=== PATIENT | female | born 1985 | race Caucasian/White ===

== ENCOUNTER 2022-02-09 15:31 | Outpatient (CLI) | payer BC, SELFPAY ==
--- NOTE | 2022-02-09 15:30 | CRLHL7_ITS ---
For Patients: As a result of the Century Cures Act, medical imaging exams and procedure reports are released immediately into your electronic medical record. You may view this report before your referring provider. If you have questions, please contact your health care provider. DXA BONE MINERAL DENSITY STUDY Current height (in): 68. Weight (lb): 170. Menopause age: N/A. Ethnicity: White. 1. Have you had a previous hip or vertebral fracture? No. 2. Have you had any fractures during your adult life which did not result from significant trauma (e.g., auto accident)? No. 3. Did either of your parents have a hip fracture? No. 4. Do you smoke? No. 5. Have you ever taken Glucocorticoids? No. 6. Do you have rheumatoid arthritis? No. 7. Do you have secondary osteoporosis? No. 8. Do you drink 3 or more alcoholic drinks per day? No. 9. Are you being treated for osteoporosis? No. 10. Have you ever taken any of the following medications: Actonel, Evista, Fosamax, Miacalcin, Reclast, Boniva, Forteo, HRT (i.e. estrogen/hormone therapy), Protelos, Prolia, Vitamin D, Calcium, other ??? please specify. ANSWER: Yes, vitamin D and calcium. 11. Do you have any of the following medical conditions: Anorexia or bulimia, asthma or emphysema, end stage renal disease, hyperparathyroidism, any seizure disorders, cancer, inflammatory bowel diseases, hysterectomy, other ??? please specify. ANSWER: No. 12. What was your maximum height (inches)? 68. 13. Do you perform weight bearing exercise regularly? Yes. 14. Do you regularly consume dairy products? Yes. 15. Do you drink caffeinated beverages? Yes. 16. At what age did your period start? 13. 17. Are you premenopausal? Yes. 18. How many full term pregnancies have you had? 3. 19. Have you ever missed your period for more than 6 months in a row (not including or menopause)? Yes. TECHNIQUE: Bone mineral density study was performed using the [employer]. FINDINGS: The results of the study expressed as bone mineral density (BMD) are as follows: Lumbar spine L1 to L4: BMD: 1.103 g/cm2. Z-score: 0.6 Neck Left: BMD: 0.872 g/cm2. Z-score: 0.4 Right: BMD: 0.811 g/cm2. Z-score: -0.1 Total Left: BMD: 1.015 g/cm2. Z-score: 0.7 Right: BMD: 0.994 g/cm2. Z-score: 0.5 IMPRESSION: Normal bone density. Mayra Johns M.D. Diagnostic/Breast Radiologist [email or web address]/Dictated by: Mayra Johns MD @ 02/09/2022 4:56:00 PM (Electronically Signed)
== END 2022-02-09 15:32 | disposition home or self-care (01) ==
LOC: RAD 15:33
PROVIDERS: PCP Obstetrics & Gynecology; Visit Provider Nurse Practitioner Family
DX: M84.40XA Pathological fracture, unspecified site, initial encounter for fracture (principal)
CPT/HCPCS: 77080

== ENCOUNTER 2022-06-08 07:30 | Outpatient (RCR) | payer BC, SELFPAY | END 2022-08-15 15:04 | disposition home or self-care (01) | PROVIDERS: PCP Obstetrics & Gynecology; Visit Provider Obstetrics & Gynecology | DX: N81.4 Uterovaginal prolapse, unspecified (principal); Z51.89 Encounter for other specified aftercare | CPT/HCPCS: 97110; 97112; 97140; 97162; 97535 ==

== ENCOUNTER 2023-12-25 14:52 | Outpatient (CLI) | payer BC, SELFPAY ==
--- NOTE | 2023-12-25 15:00 | CRLHL7_ITS ---
For Patients: As a result of the Cures Act, medical imaging exams and procedure reports are released immediately into your electronic medical record. You may view this report before your referring provider. If you have questions, please contact your health care provider. INDICATION: First trimester scan, establish dates. COMPARISON: None. TECHNIQUE: Real-time argueta-scale imaging of the pelvis was performed. FINDINGS: Sonographic imaging demonstrates a single living intrauterine gestation. The embryo demonstrates a regular cardiac rate measuring 161 beats per minute. The embryo`s crown-rump length measurement of 3.8 cm corresponds to a gestational age of 10 weeks 5 days with a sonographic due date of 07/17/2024. There is a normal-appearing yolk sac. There are no gross abnormalities noted within the embryo at this early state of development. The gestational sac has a normal appearance. There is a 2.1 x 0.6 x 1.9 cm perigestational hemorrhage. The amount of fluid within the sac appears appropriate for gestational age. The cervix is closed. The myometrium appears normal. Corpus luteal cyst right ovary. Left ovary not visualized. There are no suspicious fluid collections noted in the cul-de-sac. IMPRESSION: Single living intrauterine with sonographic gestational age 10 weeks 5 days and sonographic due date of 07/17/2024. Subchorionic hemorrhage measuring 2.1 x 0.6 x 1.9 cm. Dictated by Magdaleno Rodriguez MD @ 12/26/2023 12:26:57 PM (Electronically Signed)
== END 2023-12-25 14:53 | disposition home or self-care (01) ==
LOC: US 14:53
PROVIDERS: Visit Provider Advanced Practice Midwife
DX: Z34.91 Encounter for supervision of normal pregnancy, unspecified, first trimester (principal); O20.9 Hemorrhage in early pregnancy, unspecified; Z3A.10 10 weeks gestation of pregnancy
CPT/HCPCS: 76817; 84443; 86703; 86706; 86803; 86850; 86900; 86901; 87086; 87340

== ENCOUNTER 2023-12-25 15:42 | Outpatient (CLI) | payer BC, SELFPAY ==
--- OUTSIDE RECORDS SUMMARY | 2023-12-25 15:46 | XMS_ITS | Clinical Summary ---
Author Organization [employer] [facility] Address [place], [place] [address] Care Team Providers Care Slurry Blender Name Role Phone Rosa Valadez NP Primary Care Provider [phone] Allergies No known active allergies Medications Medication Sig Dispensed Refills Start Date End Date Status Aifvl-2-DUL-EPA-Fish Oil 1,000 mg (120 mg-180 mg) cap Take 1 capsule by mouth. 0 01/11/2018 Active vitamin-folic acid 1 mg ( RX) tablet/capsule Take 1 tablet by mouth once daily. 0 01/11/2018 Active Active Problems Problem Noted Date Diagnosed Date ASCUS of cervix with negative high risk HPV 01/2016 Overview: 11/2015 Colposcopy Advised Low serum high density lipoprotein (HDL) Immunizations Name Administration Dates Next Due DTaP 11/19/1990, 7,03/19/1986,01/21 Hepatitis B (Adult) 05/30/2004,01/25/2004,2003 Human Papilloma Virus Vaccin e, Unspecified 03/08/2011,05/10/2010,03/20/2008,07/12,05/21/2007 Inactivated Polio Vaccine 11/19/1990,,03/19/1986,01/21 MMR 02/05/1998,06/29/1989 Meningococcal Vaccine (Menomune) 12/02/2003 Tdap 11/27/2016,01/23/2008 Family History Medical History Relation Name Comments GI Disease Brother uc and celiac GI Disease Father celiac Other Father idopathic throm bocytopenia/low hdl Thyroid Disease Father hypo GI Disease Maternal Aunt celiac and col on cancer Good Health Mother Heart Disease Paternal Grandfather GI Disease Paternal Grandmother small b owel lymphoma Relation Name Status Comments Brother Father Maternal Aunt Mother Paternal Grandfather Paternal Grandmother Social History Tobacco Use Types Packs/Day Years Used Date Smoking Tobacco: Never Smokeless Tobacco: Never Alcohol Use Standard Drinks/Week Comments Yes 0 (1 standard drink = 0.6 oz pur e alcohol) PHQ-2 Answer Date Recorded PHQ-2 Score 0 08/11/2018 Sex and Gender Information Value Date Recorded Sex Assigned at Not on file Gender Identity Not on file Sexual Orientation Not on file Obstetrics History Last Filed Vital Signs Vital Sign Reading Time Taken Comments Blood Pressure 104/62 01/11/2018 9:41 AM CDT Pulse 64 01/11/2018 9:41 AM CDT Temperature 37.7 ??C (99.8 ??F) 01/30/2015 3:30 PM CD T Respiratory Rate 20 01/30/2015 3:30 PM CDT Oxygen Saturation 99% 01/30/2015 3:30 PM CDT RA Inhaled Oxygen Concentration - - Weight 69.9 kg (154 lb) 01/11/2018 9:41 AM CDT Height 174 cm (5' 8.5) 01/11/2018 9:41 AM CDT Body Mass Index 23.08 01/11/2018 9:41 AM CDT Plan of Treatment Health Maintenance Due Date Last Done Comments HIV for age 15-65 2000 Hepatitis C screening for age 18-79 10/18/2003 BMI (ht and wt on same day) for age 18+ 01/11/2019 01/11/2018, 02/17/2016, 11/17/2015 Depression screening for age 12+ 01/11/2019 01/11/2018, 11/17/2015 COVID-19 vaccine series (2022-24 season) 2023 Influenza for age 9-49 02/10/2024 Pap test for age 21-65 04/29/2024 , 04/29/2021, 09/27/2018, Additional history exists Tetanus booster 11/27/2026 11/27/2016, 01/23/2008 Tdap Completed 11/27/2016, 01/23/2008 Pneumococcal series for age 6-64 Aged Out No longer eligible based on patient's age to complete this topic Procedures Procedure Name Priority Date/Time Associated Diagnosis Comments HPV THIN PREP Routine 04/29/2021 10:10 AM RN MATERNAL CHILD from Last 3 Months or Most Recently Relevant to Health Maintenance Results * HPV HIGH RISK (04/29/2021 10:10 AM RN MATERNAL CHILD) TYPE 16 Negative Negative 05/04/2021 2:12 PM RN MATERNAL CHILD [facility] TYPE 18 Negative Negative 05/04/2021 2:12 PM RN MATERNAL CHILD [facility] OTHER HIGH RISK TYPES Negative Negative 05/04/2021 2:12 PM RN MATERNAL CHILD [facility] Other (Cervical/Vagina l) 04/29/2021 10:10 AM RN MATERNAL CHILD 05/02/2021 9:24 AM RN MATERNAL CHILD Narrative [facility] - 05/04/2021 2:12 PM RN MATERNAL CHILD HPV types 16, 18, 31, 33, 35, 39, 45, 51, 52, 56, 58, 59, 66 and 68 DNA were undetectable or below the pre-set threshold. Methodology: Suzie Lucy 4800 HPV Test Lesli Truong NP MICROBIOLOGY [facility] [address] [place] [address], from Last 3 Months or Most Recently Relevant to Health Maintenance Care Teams Slurry Blender Relationship Specialty Start Date End Date Rosa Valadez NP [address] [facility] [place] [address] PCP - General 01/05/22
--- OUTSIDE RECORDS SUMMARY | 2023-12-25 15:46 | XMS_ITS | Clinical Summary ---
Author Organization [facility] Address [address] [place] [address] Care Team Providers Care Rail Operations Controller Name Role Phone Unassigned, Provider Primary Care Provider Unava ilable Source Comments You are receiving this document as you are listed as the primary care provider,follow-up provider, or the patient has been referred to you for consultation.This is in compliance with the Medicare and[facility] EHR Incentive Program,which states Providers who transition their patient to another setting of careor provider of care or refers their patient to another provider of care shouldprovide summary care record for each transition of care or referral. [facility] Allergies No known active allergies Medications Medication Sig Dispensed Refills Start Date End Date Status omega-3 fatty acids (MAXEPA,FISHOIL) 1000 MG capsule Take 1 g by mouth. 07/11/2012 Active VIT-FE FUMARATE-FA OR Active VITAMIN D, CHOLECALCIFEROL, OR Activ e MAGNESIUM LACTATE OR Acti ve Norethindrone, Contraceptive, (NOR-QD) 0.35 MG tablet Take 1 Tab by mouth daily. 90 Tab 3 03/19/2017 Active Active Problems No known active problems Resolved Problems Problem Noted Date Diagnosed Date Resolved Date Encounter for supervision of normal first 09/18/2016 03/19/2017 Immunizations Name Administration Dates Next Due Tdap 11/27/2016 Family History Medical History Relation Name Comments High Cholesterol Father Hypertension Father Thyroid Disorder Father Heart Disease Paternal Grandfather High Cholesterol Paternal Grandfather Hypertension Paternal Grandfather Cancer Paternal Grandmother Stroke Paternal Grandmother Relation Name Status Comments Father Alive Mother Alive Brother Alive Maternal Grandfather Maternal Grandmother Paternal Grandfather Paternal Grandmother Sister Alive Social History Tobacco Use Types Packs/Day Years Used Date Smoking Tobacco: Never Smokeless Tobacco: Never Alcohol Use Standard Drinks/Week Comments No 0 (1 standard drink = 0.6 oz pur e alcohol) Sex and Gender Information Value Date Recorded Sex Assigned at Not on file Gender Identity Not on file Sexual Orientation Not on file Last Filed Vital Signs Vital Sign Reading Time Taken Comments Blood Pressure 114/74 03/19/2017 11:54 AM CDT Pulse 76 03/19/2017 11:54 AM CDT Temperature - - Respiratory Rate - - Oxygen Saturation - - Inhaled Oxygen Concentration - - Weight 86.5 kg (190 lb 9.6 oz) 02/05/2017 7:16 A M CDT Height 174 cm (5' 8.5) 07/03/2016 8:38 AM DENTAL TECHNICIAN Body Mass Index 28.56 07/03/2016 8:38 AM DENTAL TECHNICIAN Plan of Treatment Health Maintenance Due Date Last Done Comments Cervical Cancer Screening Due 1985 Hep C Screening (Preventive Services) 1985 Adult Preventive Visit 10/18/2003 HepB (1) 2004 COVID-19 Vaccine (1 - 2022-24 season) 2023 Influenza (#1) 2024 DTaP/Tdap/Td (7 - Tdap) 11/27/2026 11/28/19 17, 01/23/2008, 02/02/1998, Additional history exists Zoster/Shingles (1 of 2) 10/18/2035 MCV4 Aged Out 12/02/2003 No longer eligi ble based on patient's age to complete this topic HIV Screening (Preventive Services) Completed 07/03/2016 HPV Vaccine Aged Out No longer eligi ble based on patient's age to complete this topic HepA Aged Out No longer eligi ble based on patient's age to complete this topic Hib Aged Out No longer eligi ble based on patient's age to complete this topic IPV (Polio) Aged Out No longer eligi ble based on patient's age to complete this topic Pneumococcal Aged Out No longer eligi ble based on patient's age to complete this topic Procedures Procedure Name Priority Date/Time Associated Diagnosis Comments HIV-1 P24 AND HIV-1/HIV-2 ANTIBODIES Routine 07/03/2016 9:46 AM DENTAL TECHNICIAN Screening examination for venereal disease from Last 3 Months or Most Recently Relevant to Health Maintenance Results * LAB HIV-1 p24 AND HIV-1/HIV-2 ANTIBODIES (07/03/2016 9:46 AM DENTAL TECHNICIAN) HIV-1 p24 Ag and HIV-1/HIV-2 Ab Nonreactive Nonreactive PN SOFT 07/03/2016 9:46 AM DENTAL TECHNICIAN 07/03/2016 12:56 PM DENTAL TECHNICIAN Narrative PN SOFT - 07/03/2016 2:46 PM DENTAL TECHNICIAN Performed at [facility], [address] [place] [address] CLIA number [id number] Nereyda Martines APRN, CNP LAB_1 PN SOFT [address] [place] [address] from Last 3 Months or Most Recently Relevant to Health Maintenance Care Teams Rail Operations Controller Relationship Specialty Start Date End Date Unassigned, Provider [address] [place] [address] PCP - General 08/18/00
== END 2023-12-25 15:43 | disposition home or self-care (01) ==
PROVIDERS: Visit Provider Advanced Practice Midwife
DX: Z34.91 Encounter for supervision of normal pregnancy, unspecified, first trimester (principal); Z3A.10 10 weeks gestation of pregnancy
CPT/HCPCS: 84443; 86592; 86703; 86704; 86706; 86762; 86787; 86803; 86850; 86900; 86901; 87086; 87340

== ENCOUNTER 2023-12-28 09:48 | Outpatient (CLI) | payer BC, SELFPAY ==
--- OUTSIDE RECORDS SUMMARY | 2023-12-31 15:13 | XMS_ITS | Patient Health Record ---
Author Organization [facility] Address [address] [place] [address] Care Team Providers Care Supply Chain Analyst Name Role Phone None, No PCP Primary Care Provider Rachel Nix [phone] Allergies No Known Allergies Results Component Value Reference Range Notes TSH Reviewed date:07/23/2023 12:40:43 PM Interpretation:Normal Performing Lab:[facility] [address], [place] Juaquin Morgan Notes/Report: TSH 0.81 Reference Range > or = 20 Years 0.40-4.50 Ranges First trimester 0.26-2.66 Second trimester 0.55-2.73 Third trimester 0.43-2.91 HEMOGLOBIN A1c Reviewed date:07/23/2023 12:40:43 PM Interpretation:Normal Performing Lab:[facility] [address], [place] Juaquin Morgan Notes/Report: HEMOGLOBIN A1c 5.2 <5.7 % of total Hgb For the purpose of screening for the presence of diabetes: <5.7% Consistent with the absence of diabetes 5.7-6.4% Consistent with increased risk for diabetes (prediabetes) > or =6.5% Consistent with diabetes This assay result is consistent with a decreased risk of diabetes. Currently, no consensus exists regarding use of hemoglobin A1c for diagnosis of diabetes in children. According to [place] Diabetes Association (ADA) guidelines, hemoglobin A1c <7.0% represents optimal control in non- diabetic patients. Different metrics may apply to specific patient populations. Standards of Medical Care in Diabetes(ADA). HbA1c performed on [employer] platform. CBC (INCLUDES DIFF/PLT) Reviewed date:07/23/2023 12:40:43 PM Interpretation:Normal Performing Lab:[facility], [facility], [facility] InstituteYpdzOD[address] Juaquin Morgan Notes/Report: WHITE BLOOD CELL COUNT 8.5 3.8-10.8 Thousand/ uL RED BLOOD CELL COUNT 4.38 3.80-5.10 Million/uL HEMOGLOBIN 13.3 11.7-15.5 g/dL HEMATOCRIT 39.9 35.0-45.0 % MCV 91.1 80.0-100.0 fL MCH 30.4 27.0-33.0 pg MCHC 33.3 32.0-36.0 g/dL RDW 11.8 11.0-15.0 % PLATELET COUNT 294 140-400 Thousand/uL MPV 10.9 7.5-12.5 fL ABSOLUTE NEUTROPHILS 4599 9432-6517 cells/uL ABSOLUTE LYMPHOCYTES 3162 850-3900 cells/uL ABSOLUTE MONOCYTES 629 200-950 cells/uL ABSOLUTE EOSINOPHILS 94 15-500 cells/uL ABSOLUTE BASOPHILS 17 0-200 cells/uL NEUTROPHILS 54.1 LYMPHOCYTES 37.2 MONOCYTES 7.4 EOSINOPHILS 1.1 BASOPHILS 0.2 COMPREHENSIVE METABOLIC PANE L (CMP) Reviewed date:07/23/2023 12:40:43 PM Interpretation:Normal Performing Lab:[facility] [address] [facility], [facility] InstituteKmwbRT[address] Juaquin Morgan Notes/Report: GLUCOSE 80 65-99 mg/dL Fasting reference interval UREA NITROGEN (BUN) 12 7-25 mg/dL CREATININE 0.86 0.50-0.97 mg/dL EGFR 89 > OR = 60 mL/min/1.73m2 BUN/CREATININE RATIO SEE NOTE: 6-22 (calc) Not Reported: BUN and Creatinine are within reference range. SODIUM 140 135-146 mmol/L POTASSIUM 4.0 3.5-5.3 mmol/L CHLORIDE 104 98-110 mmol/L CARBON DIOXIDE 27 20-32 mmol/L CALCIUM 9.5 8.6-10.2 mg/dL PROTEIN, TOTAL 7.2 6.1-8.1 g/dL ALBUMIN 4.8 3.6-5.1 g/dL GLOBULIN 2.4 1.9-3.7 g/dL (calc) ALBUMIN/GLOBULIN RATIO 2.0 1.0-2.5 (calc) BILIRUBIN, TOTAL 0.2 0.2-1.2 mg/dL ALKALINE PHOSPHATASE 59 31-125 U/L AST 14 10-30 U/L ALT 16 6-29 U/L THYROID PEROXIDASE AND THYRO GLOBULIN ANTIBODIES Reviewed date:07/23/2023 12:40:43 PM Interpretation: Performing Lab:CB, [facility] [address], Alfredo DuvallHtilKR[address] Juaquin Morgan Notes/Report: THYROGLOBULIN ANTIBODIES 1 < or = 1 IU/mL THYROID PEROXIDASE ANTIBODIES 117 <9 IU/mL THINPREP TIS AND HPV mRNA E6 /E7 (30 yrs and over) Reviewed date:07/23/2023 12:40:43 PM Interpretation:Normal Performing Lab: [facility], IsniwswwkrPM[address] Laci Coffey Notes/Report: HPV mRNA E6/E7 Not Detected Not Detected Methodology: Black Oxide Operator-Mediated Amplification This assay detects E6/E7 viral messenger RNA (mRNA) from 14 high-risk HPV types (16,18,31,33,35,39,45,51 ,52,56,58,59,66,68). Cervical sources are required for HPV testing. If a vaginal source from a patient who has had a total hysterectomy with removal of cervix was submitted, please contact the testing laboratory for alternative testing options. For additional information, please refer to http://education.Pososhok.ru/faq/IQO567 v1 (This link if provided for information/ educational purposes only.) Reason For Referral Reason Viverant^2.12 Diagnosis 1 Pelvic floor dysfunc tion (N81.84) Diagnosis 2 Uterine prolaps (N81 .4) Referral Organization [facility] Referring Provider First Name Rachel Referring Provider Last Name Vee Referring Provider Speciality Certified Nurse Food Assembler Referred Provider Specialty Physical The rapist General Notes Rachel Baxter 07/19 04:40:18 PM COMIC BOOK DESIGNER >Patient would like a referral to [facility] pelvic floor PT. Reason: mild cystocele and mild uterine prolapse, Diastasis recti. As many sessions as the PT determines are needed. Thanks!, Lito Sadler 07/20/2023 10:57:31 AM COMIC BOOK DESIGNER > Referral uploaded and faxed to [facility] rehab- P:[phone] F:[phone], Lito Sadler 07/23/2023 12:18:08 PM >PT called and wanted referral sent to [facility]- uploaded and faxed [phone] P:[phone], Lito Sadler 08/01/2023 09:32:57 AM >[facility] called and LVM - PT can call when she is ready Referral Priority Routine Medications Medication SIG (Take, Route, Fr equency, Duration) Notes Start Date End Date Status Probiotic Active [place]-3 Active Estradiol 0.1 MG/GM 0.5 gram Vaginal twi ce a week for 90 days 07/19/2023 Active Multivitamin Active Social History Tobacco Use: Social History Observation Description Date Details (start date - stop date) Never Smoker NA - NA Tobacco Use/Smoking Question Answer Notes Are you a nonsmoker Alcohol Screen (Audit-C) Question Answer Notes Did you have a drink containing alcohol in the p ast year? Yes Points 0 Interpretation Negative Problems Problem Type SNOMED Code ICD Code Onset Dates Problem Status W/U Status Risk Notes Problem Uterovaginal prolapse (22527915) Uterine prolaps (N81.4) Active confirmed Problem Pelvic floor dysfunction (926200991) Pelvic floor dysfunction (N81.84) Active confirmed Problem 94650488 Uterus prolapse (N81.4) Active confirmed Vital Signs Blood pressure diastolic 62 mm Hg 07/19/2023 Height 68 in 07/19/2023 Blood pressure systolic 108 mm Hg 07/19/2023 Weight 161.2 lbs 07/19/2023 BMI 24.51 kg/m2 07/19/2023 Encounters Encounter Location Date Provider Diagnosis [facility] [address] [place] [address] 07/19/2023 Rachel Baxter Encounter for screening for malignant neoplasm of cervix Z12.4 ; Encounter for screening for diabetes mellitus Z13.1 ; Vaginal dryness N89.8 and Uterus prolapse N81.4 [facility] [address] [place] [address] 07/19/2023 Rachel Baxter Encounter for annual routine gynecological examination Z01.419 ; Encounter for screening for human papillomavirus (HPV) Z11.51 ; Screening for metabolic disorder Z13.228 ; Diabetes mellitus screening Z13.1 and Screening for endocrine disorder Z13.29 [facility] [address] [place] [address] 07/19/2023 Rachel Baxter [facility] [address] [place], [place] [id number] 07/19/2023 Rachel Baxter Assessments Encounter Date Diagnosis (ICD Code) Assessment Notes Treat ment Notes Treatment Clinical Notes 07/19/2023 Encounter for screening for malignant neoplasm of cervix (ICD-10 - Z12.4) 07/19/2023 Encounter for screening for diabetes mellitus (ICD-10 - Z13.1) 07/19/2023 Encounter for screening for human papillomavirus (HPV) (ICD-10 - Z11.51) 07/19/2023 Encounter for annual routine gynecological examination (ICD-10 - Z01.419) 07/19/2023 Screening for metabolic disorder (ICD-10 - Z13.228) 07/19/2023 Vaginal dryness (ICD-10 - N89.8) 07/19/2023 Uterus prolapse (ICD-10 - N81.4) 1. Desires pelvic floor PT referral 07/19/2023 Diabetes mellitus screening (ICD-10 - Z13.1) 07/19/2023 Screening for endocrine disorder (ICD-10 - Z13.29) 07/19/2023 Other Reviewed recommendations for Vit D 5000IU, Ca+ and daily multi vitamin. Preventative lab panel collected Pap collected Encouraged to call with any issues or concerns as they come up. All questions answered. RTC in 1 year Plan Of Treatment No Information Insurance Providers Payer Name Payer Address Payer Phone Subscriber Number Group Number Insured Name Patient Relationship to Insured Coverage Start Date Coverage End Date BCBS - (Client Bill) [address] [place] [address] [id number] Brooklynn Gomez Self - patient is the insured Medical (General) History Medical History History ICD Code Abnormal Pap Chicken Pox Thyroid Problem Surgical History Surgery Date(Month/Year) Tonsil 2004
--- OUTSIDE RECORDS SUMMARY | 2023-12-31 15:13 | XMS_ITS | Clinical Summary ---
Author Organization [employer] [facility] Address [place], [place] [address] Care Team Providers Care Maintenance Supervisor Mechanical Name Role Phone Rosa Valadez NP Primary Care Provider [phone] Allergies No known active allergies Medications Medication Sig Dispensed Refills Start Date End Date Status Mgggj-0-KGF-EPA-Fish Oil 1,000 mg (120 mg-180 mg) cap [...] HPV THIN PREP Routine 04/29/2021 10:10 AM YARD COORDINATOR from Last 3 Months or Most Recently Relevant to Health Maintenance Results * HPV HIGH RISK (04/29/2021 10:10 AM YARD COORDINATOR) TYPE 16 Negative Negative 05/04/2021 2:12 PM YARD COORDINATOR [facility] TYPE 18 Negative Negative 05/04/2021 2:12 PM YARD COORDINATOR [facility] OTHER HIGH RISK TYPES Negative Negative 05/04/2021 2:12 PM YARD COORDINATOR [facility] Other (Cervical/Vagina l) 04/29/2021 10:10 AM YARD COORDINATOR 05/02/2021 9:24 AM YARD COORDINATOR Narrative [facility] - 05/04/2021 2:12 PM YARD COORDINATOR HPV types 16, 18, 31, 33, 35, 39, 45, 51, 52, 56, 58, 59, 66 and 68 DNA were undetectable or below the pre-set threshold. Methodology: Suzie Lucy 4800 HPV Test Lesli Truong NP MICROBIOLOGY [facility] [address] [place] [address], from Last 3 Months or Most Recently Relevant to Health Maintenance Care Teams Maintenance Supervisor Mechanical Relationship Specialty Start Date End Date Rosa Valadez NP [address] [facility] [place] [address] PCP - General 01/05/22
--- OUTSIDE RECORDS SUMMARY | 2023-12-31 15:13 | XMS_ITS | Clinical Summary ---
Author Organization [facility] Address [address] [place] [address] Care Team Providers Care Web Database Developer Name Role Phone Unassigned, Provider Primary Care Provider Unava ilable Source Comments You are receiving this document as you are listed as the primary care provider,follow-up provider, or the patient has been referred to you for consultation.This is in compliance with the Medicare and[facility] EHR Incentive Program,which states Providers who transition their patient to another setting of careor provider of care or refers their patient to another provider of care shouldprovide summary care record for each transition of care or referral. [facility] Allergies No known active [...] 174 cm (5' 8.5) 07/03/2016 8:38 AM HOSPITAL INTERN Body Mass Index 28.56 07/03/2016 8:38 AM HOSPITAL INTERN Plan of Treatment Health Maintenance Due Date [...] AND HIV-1/HIV-2 ANTIBODIES Routine 07/03/2016 9:46 AM HOSPITAL INTERN Screening examination for venereal disease from Last 3 Months or Most Recently Relevant to Health Maintenance Results * LAB HIV-1 p24 AND HIV-1/HIV-2 ANTIBODIES (07/03/2016 9:46 AM HOSPITAL INTERN) HIV-1 p24 Ag and HIV-1/HIV-2 Ab Nonreactive Nonreactive PN SOFT 07/03/2016 9:46 AM HOSPITAL INTERN 07/03/2016 12:56 PM HOSPITAL INTERN Narrative PN SOFT - 07/03/2016 2:46 PM HOSPITAL INTERN Performed at [facility], [address] [place] [address] CLIA number [id number] Nereyda Martines APRN, CNP LAB_1 PN SOFT [address] [place] [address] from Last 3 Months or Most Recently Relevant to Health Maintenance Care Teams Web Database Developer Relationship Specialty Start Date End Date Unassigned, Provider [address] [place] [address] PCP - General 08/18/00
== END 2023-12-28 09:49 | disposition home or self-care (01) ==
LOC: NFLDREF 12-31 15:11
PROVIDERS: Visit Provider Advanced Practice Midwife
DX: O09.521 Supervision of elderly multigravida, first trimester (principal); Z3A.10 10 weeks gestation of pregnancy; Z87.81 Personal history of (healed) traumatic fracture
CPT/HCPCS: 82306

== ENCOUNTER 2024-01-08 09:45 | Outpatient (CLI) | payer BC, SELFPAY ==
--- OUTSIDE RECORDS SUMMARY | 2024-01-08 09:48 | XMS_ITS | Clinical Summary ---
Author Organization [facility] Address [address] [place] [address] Care Team Providers Care Log Raft Worker Name Role Phone Unassigned, Provider Primary Care Provider Unava ilable Source Comments You are receiving this document as you are listed as the primary care provider,follow-up provider, or the patient has been referred to you for consultation.This is in compliance with the Medicare and[facility] EHR Incentive Program,which states Providers who transition their patient to another setting of careor provider of care or refers their patient to another provider of care shouldprovide summary care record for each transition of care or referral. [facility] Allergies No known active allergies Medications [...] 174 cm (5' 8.5) 07/03/2016 8:38 AM GUEST SERVICES AMBASSADOR Body Mass Index 28.56 07/03/2016 8:38 AM GUEST SERVICES AMBASSADOR Plan of Treatment Health Maintenance Due Date [...] AND HIV-1/HIV-2 ANTIBODIES Routine 07/03/2016 9:46 AM GUEST SERVICES AMBASSADOR Screening examination for venereal disease from Last 3 Months or Most Recently Relevant to Health Maintenance Results * LAB HIV-1 p24 AND HIV-1/HIV-2 ANTIBODIES (07/03/2016 9:46 AM GUEST SERVICES AMBASSADOR) HIV-1 p24 Ag and HIV-1/HIV-2 Ab Nonreactive Nonreactive PN SOFT 07/03/2016 9:46 AM GUEST SERVICES AMBASSADOR 07/03/2016 12:56 PM GUEST SERVICES AMBASSADOR Narrative PN SOFT - 07/03/2016 2:46 PM GUEST SERVICES AMBASSADOR Performed at [facility], [address] [place] [address] CLIA number [id number] Nereyda Martines APRN, CNP LAB_1 PN SOFT [address] [place] [address] from Last 3 Months or Most Recently Relevant to Health Maintenance Care Teams Log Raft Worker Relationship Specialty Start Date End Date Unassigned, Provider [address] [place] [address] PCP - General 08/18/00
--- OUTSIDE RECORDS SUMMARY | 2024-01-08 09:48 | XMS_ITS | Clinical Summary ---
Author Organization [facility] Address [place], [place] [address] Care Team Providers Care Retail Loss Prevention Investigator Name Role Phone Rosa Valadez NP Primary Care Provider [phone] Allergies No known active allergies Medications Medication Sig Dispensed Refills Start Date End Date Status Emixo-3-PRB-EPA-Fish Oil 1,000 mg (120 mg-180 mg) cap [...] HPV THIN PREP Routine 04/29/2021 10:10 AM COLLEGE HIRE from Last 3 Months or Most Recently Relevant to Health Maintenance Results * HPV HIGH RISK (04/29/2021 10:10 AM COLLEGE HIRE) TYPE 16 Negative Negative 05/04/2021 2:12 PM COLLEGE HIRE [facility] TYPE 18 Negative Negative 05/04/2021 2:[address] [facility] OTHER HIGH RISK TYPES Negative Negative 05/04/2021 2:[address] [facility] Other (Cervical/Vagina l) 04/29/2021 10:10 AM COLLEGE HIRE 05/02/2021 9:24 AM COLLEGE HIRE Narrative [facility] - 05/04/2021 2:12 PM COLLEGE HIRE HPV types 16, 18, 31, 33, 35, 39, 45, 51, 52, 56, 58, 59, 66 and 68 DNA were undetectable or below the pre-set threshold. Methodology: Suzie Lucy 4800 HPV Test Lesli Truong NP MICROBIOLOGY [facility] [employer] [facility] [address] [place] [address], from Last 3 Months or Most Recently Relevant to Health Maintenance Care Teams Retail Loss Prevention Investigator Relationship Specialty Start Date End Date Rosa Valadez NP [address] [facility] [place] [address] PCP - General 01/05/22
--- OUTSIDE RECORDS SUMMARY | 2024-01-08 09:48 | XMS_ITS | Patient Health Record ---
Author Organization [facility] Address [address] [place] [address] Care Team Providers Care Telemarketing Fundraiser Name Role Phone None, No PCP Primary Care Provider Rachel Nix [phone] Allergies No Known Allergies Results Component Value Reference Range Notes TSH Reviewed date:07/23/2023 12:40:43 PM Interpretation:Normal Performing Lab:JA[facility] [address], Video PassportsCbwcEU[address] Juaquin Morgan Notes/Report: TSH 0.81 Reference Range > or = 20 Years 0.40-4.50 Ranges First trimester 0.26-2.66 Second trimester 0.55-2.73 Third trimester 0.43-2.91 HEMOGLOBIN A1c Reviewed date:07/23/2023 12:40:43 PM Interpretation:Normal Performing Lab:JA[facility] [address], Video PassportsIrrsAD[address] Juaquin Morgan Notes/Report: HEMOGLOBIN A1c 5.2 <5.7 [...] diagnosis of diabetes in children. According to [place] Diabetes Association (ADA) guidelines, hemoglobin A1c <7.0% represents optimal control in non- diabetic patients. Different metrics may apply to specific patient populations. Standards of Medical Care in Diabetes(ADA). HbA1c performed on Compendium platform. CBC (INCLUDES DIFF/PLT) Reviewed date:07/23/2023 12:40:43 PM Interpretation:Normal Performing Lab:JAIDA, [facility] MexicoPRNMS INVESTMENTSHackettstown [facility], [facility] HospitalBwnwRO[address] Juaquin Morgan Notes/Report: WHITE BLOOD CELL COUNT 8.5 3.8-10.8 Thousand/ uL RED BLOOD CELL COUNT 4.38 3.80-5.10 Million/uL HEMOGLOBIN 13.3 11.7-15.5 g/dL HEMATOCRIT 39.9 35.0-45.0 % MCV 91.1 80.0-100.0 fL MCH 30.4 27.0-33.0 pg MCHC 33.3 32.0-36.0 g/dL RDW 11.8 11.0-15.0 % PLATELET COUNT 294 140-400 Thousand/uL MPV 10.9 7.5-12.5 fL ABSOLUTE NEUTROPHILS 4599 1794-5671 cells/uL ABSOLUTE LYMPHOCYTES 3162 850-3900 cells/uL ABSOLUTE MONOCYTES 629 200-950 cells/uL ABSOLUTE EOSINOPHILS 94 15-500 cells/uL ABSOLUTE BASOPHILS 17 0-200 cells/uL NEUTROPHILS 54.1 LYMPHOCYTES 37.2 MONOCYTES 7.4 EOSINOPHILS 1.1 BASOPHILS 0.2 COMPREHENSIVE METABOLIC PANE L (CMP) Reviewed date:07/23/2023 12:40:43 PM Interpretation:Normal Performing Lab:JAIDA [facility] Wtyp[address] [facility] MexicoPRNMS INVESTMENTSHackettstown [facility], Me[facility] Memorial HospitalMorjJV[address] Juaquin Morgan Notes/Report: GLUCOSE 80 65-99 mg/dL [...] Reviewed date:07/23/2023 12:40:43 PM Interpretation: Performing Lab:CB, [facility] [address], Alfredo DuvallHvhbZB[address] Juaquin Morgan Notes/Report: THYROGLOBULIN ANTIBODIES 1 < or = 1 IU/mL THYROID PEROXIDASE ANTIBODIES 117 <9 IU/mL THINPREP TIS AND HPV mRNA E6 /E7 (30 yrs and over) Reviewed date:07/23/2023 12:40:43 PM Interpretation:Normal Performing Lab: [facility], KcwfbpwvmfXC[address] Laci Coffey Notes/Report: HPV mRNA E6/E7 Not Detected Not Detected Methodology: Impregnator Helper-Mediated Amplification This assay detects E6/E7 viral messenger RNA (mRNA) from 14 high-risk HPV types (16,18,31,33,35,39,45,51 ,52,56,58,59,66,68). Cervical sources are required for HPV testing. If a vaginal source from a patient who has had a total hysterectomy with removal of cervix was submitted, please contact the testing laboratory for alternative testing options. For additional information, please refer to http://education.Contactually/faq/OHI676 v1 (This link if provided for information/ educational purposes only.) Reason For Referral Reason Viverant^2.12 Diagnosis 1 Pelvic floor dysfunc tion (N81.84) Diagnosis 2 Uterine prolaps (N81 .4) Referral Organization [facility] Referring Provider First Name Rachel Referring Provider Last Name Vee Referring Provider Speciality Certified Nurse Sulky Driver Referred Provider Specialty Physical The rapist General Notes Rachel Baxter 07/19 04:40:18 PM CAR WHACKER >Patient would like a referral to [facility] pelvic floor PT. Reason: mild cystocele and mild uterine prolapse, Diastasis recti. As many sessions as the PT determines are needed. Thanks!, Lito Sadler 07/20/2023 10:57:31 AM CAR WHACKER > Referral uploaded and faxed to [facility] rehab- P:[phone] F:[phone], Lito Sadler 07/23/2023 12:18:08 PM >PT called and wanted referral sent to [facility]- uploaded and faxed [phone] P:[phone], Lito Sadler 08/01/2023 09:32:57 AM >[facility] called and LVM - PT can call when she is ready Referral Priority Routine Medications Medication SIG (Take, Route, Fr equency, Duration) Notes Start Date End Date Status Probiotic Active [place]-3 Active Estradiol 0.1 MG/GM 0.5 gram Vaginal [...] W/U Status Risk Notes Problem Uterovaginal prolapse (73445223) Uterine prolaps (N81.4) Active confirmed Problem Pelvic floor dysfunction (343778994) Pelvic floor dysfunction (N81.84) Active confirmed Problem [id number] Uterus prolapse (N81.4) Active confirmed Vital Signs Blood pressure diastolic 62 mm Hg 07/19/2023 Height 68 in 07/19/2023 Blood pressure systolic 108 mm Hg 07/19/2023 Weight 161.2 lbs 07/19/2023 BMI 24.51 kg/m2 07/19/2023 Encounters Encounter Location Date Provider Diagnosis [facility] [address] [place] [address] 07/19/2023 Rachel Baxter Encounter for annual routine gynecological examination Z01.419 ; Encounter for screening for human papillomavirus (HPV) Z11.51 ; Screening for metabolic disorder Z13.228 ; Diabetes mellitus screening Z13.1 and Screening for endocrine disorder Z13.29 [facility] [address] [address] 07/19/2023 Rachel Baxter Encounter for screening for malignant neoplasm of cervix Z12.4 ; Encounter for screening for diabetes mellitus Z13.1 ; Vaginal dryness N89.8 and Uterus prolapse N81.4 [facility] [address] [place] [address] 07/19/2023 Rachel Baxter [facility] [address] [facility] [address] [place], [place] [id number] 07/19/2023 Rachel Baxter Assessments Encounter Date Diagnosis [...] Date BCBS - (Client Bill) [address] [place] [address] [id number] Brooklynn Gomez Self - patient is the insured Medical (General) History Medical History History ICD Code Abnormal Pap Chicken Pox Thyroid Problem Surgical History Surgery Date(Month/Year) Tonsil 2004
== END 2024-01-08 09:46 | disposition home or self-care (01) ==
LOC: NFLDREF 09:47
PROVIDERS: Visit Provider Advanced Practice Midwife
DX: R33.9 Retention of urine, unspecified (principal)
CPT/HCPCS: 87086

== ENCOUNTER 2024-04-01 17:50 | Outpatient (CLI) | payer BC, SELFPAY ==
--- OUTSIDE RECORDS SUMMARY | 2024-04-01 17:52 | XMS_ITS | Clinical Summary ---
Author Organization [place] Address [address] [place] [address] Care Team Providers Care Chief Librarian Branch Or Department Name Role Phone No Ref-Primary, Physician Primary Care Provider Allergies No known active allergies Medications Medication Sig Dispensed Refills Start Date End Date Status fish oil-omega-3 fatty acids (OMEGA 3) 1000 MG capsule Take 1 capsule by mouth 2 times daily. 90 capsule 3 07/11/2012 Active MV-Min-Fe Fum-FA-DHA ( 1 PO) Active ibuprofen (ADVIL/MOTRIN) 400 MG tabletIndications:SV D (spontaneous vaginal delivery) Take 1-2 tablets (400-800 mg) by mouth every 6 hours as needed for other (cramping) 60 tablet 02/09/2017 Active senna-docusate (SENOKOT-S;PERICOLAC E) 8.6-50 MG per tabletIndications:SV D (spontaneous vaginal delivery) Take 1-2 tablets by mouth 2 times daily 60 tablet 02/09/2017 Active Active Problems Problem Noted Date Diagnosed Date 02/07/2017 Indication for care in labor or delivery 017 Encounter for triage in patient 017 CARDIOVASCULAR SCREENING; LDL GOAL LESS THAN 160 12/17/2014 Papanicolaou smear of cervix with low grade squamous intraepithelial lesion (LGSIL) (aka LSIL) 11/09/2014 Overview: 11/10/14: LSIL. Plan colp.02/10/15: [place] - WNL. Plan cotest pap & HPV in 1 year Tracking started. Contraception management 10/11/2012 Estimated Date of Delivery Comme nts Yes 07/19/2024 Based on last me nstrual period of 10/13/2023 Resolved Problems Problem Noted Date Diagnosed Date Resolved Date Hyperlipidemia LDL goal <160 07/11/2012 12/17/2014 Insomnia 07/11/2012 12/17/2014 Encounters Date Type Department Care Team Description 03/04/2024 9:15 AM CDT Office Visit [facility] Maternal Medicine [place] [address] [facility] [address] [place] [address] Deion Mercedes MD Multigravida of advanced maternal age in second trimester (Primary Dx) 03/04/2024 8:45 AM CDT - 03/04/2024 11:59 PM CDT Hospital Encounter [facility] Maternal Medicine [place] [address] [facility] [address] [place] [phone] Deion Mercedes MD related condition, antepartum Discharge Disposition: Home or Self Care 03/04/2024 Travel 02/25/2024 PRE VISIT [facility] Medicine [place] [address] [address] [facility] [address] [place] [phone] Kellen Medley, MARISELA Ultrasound (L2-AMA) 02/20/2024 Medical Correspondence [address] [place] [address] Scan, Non-Provider 02/20/2024 Transcribe Orders [facility] [place] [address] [facility] [address] [place] [address] Rivka Valdovinos APRN CNM related condition, antepartum (Primary Dx) 01/31/2024 Medical Correspondence [address] [place] [address] Scan, Non-Provider from Last 3 Months Immunizations Name Administration Dates Next Due DTAP (<7y) 11/19/1990,06/29/1986,03/19/1986 ,01/21/1986 HPV 03/08/2011, 0,03/20/2008,07/12/2007, HepB 05/30/2004,01/25/2004,12/02/2003 Influenza (IIV3) PF 01/21/2012 MMR 02/05/1998,06/29/1989 Mantoux Tuberculin Skin Test 03/08/2011,04/26/20 10 Meningococcal (Menomune??) 12/02/2003 Poliovirus, inactivated (IPV) 11/19/1990, 987,03/19/1986,01/21/1986 TD,PF 7+ (Tenivac) 02/02/1998 TDAP (Adacel,Boostrix) 01/23/2008 Family History Medical History Relation Comments Lipids Brother 1-celiac ulcerat re colitis Lipids Father celiac dis Thyroid Disease Father underactive Cancer - colorectal Maternal Aunt Family History Negative Mother Diabetes Paternal Grandmother Family History Negative Sister 2 1 Breast Cancer No family hx of Family History Negative No family hx of Relation Status Comments Brother Alive x1 Father Alive Maternal Aunt Maternal Grandfather Maternal Grandmother Mother Alive Paternal Grandfather Paternal Grandmother Sister 1 Alive x1 Sister 2 Social History Tobacco Use Types Packs/Day Years Used Date Smoking Tobacco: Never Smokeless Tobacco: Never Alcohol Use Standard Drinks/Week Comments Yes 0 (1 standard drink = 0.6 oz pur e alcohol) weekends-social Adolescent Education Answer Date Record ed Getting School Help Needed Not on file 12/16 Estimated Date of Delivery Comme nts Yes 07/19/2024 Based on last me nstrual period of 10/13/2023 Sex and Gender Information Value Date Recorded Sex Assigned at Not on file Gender Identity Not on file Sexual Orientation Not on file Last Filed Vital Signs Vital Sign Reading Time Taken Comments Blood Pressure 136/86 02/09/2017 9:28 AM CDT Pulse 57 02/08/2017 12:09 PM CDT Temperature 36.8 ??C (98.2 ??F) 02/09/2017 9:28 AM CD T Respiratory Rate 18 02/09/2017 9:28 AM CDT Oxygen Saturation 98% 09/12/2015 12:31 PM CDT Inhaled Oxygen Concentration - - Weight 86.2 kg (190 lb) 02/07/2017 11:10 AM CDT Height 172.7 cm (5' 8) 02/07/2017 11:10 AM CDT Body Mass Index 28.89 02/07/2017 11:10 AM CDT Plan of Treatment Health Maintenance Due Date Last Done Comments ADVANCE CARE PLANNING 1985 ANNUAL REVIEW OF HM ORDERS 1985 HEPATITIS C SCREENING 10/18/2003 GLUCOSE 11/10/2017 11/10/2014, 09/09, 07/25/2012, Additional history exists YEARLY PREVENTIVE VISIT 10/31/2020 11/01/19 20, 11/10/2014, 09/25/2013, Additional history exists PAP 04/29/2022 04/29/2021, 10/10, 11/01/2019, Additional history exists PHQ-2 (once per calendar year) 2023 MATERNAL SCREENING DISCUSSION 12/22/2023 COVID-19 Vaccine ( season) 2024 INFLUENZA VACCINE (#1) 2024 01/21/2012 OBGCT (OB) 03/29/2024 RSV VACCINE (1 - Risk 1-dose series) 05/24/2024 GROUP B STREP SCREENING 06/21/2024 01/08/2017 DTAP/TDAP/TD IMMUNIZATION (8 - Td or Tdap) 03/21/2029 03/21/2019, 11/27/2016, 01/23/2008, Additional history exists MENINGITIS IMMUNIZATION Aged Out 12/02/2003 No l onger eligible based on patient's age to complete this topic HEPATITIS B IMMUNIZATION Completed 004, 05/30/2004, 01/25/2004, Additional history exists HPV IMMUNIZATION Completed 03/08/2011, , 03/20/2008, Additional history exists HIV SCREENING Completed 07/03/2016 Pneumococcal Vaccine: Pediatrics (0 to 5 Years) and At-Risk Patients (6 to 64 Years) Aged Out No longer eligible based on patient's age to complete this topic RSV MONOCLONAL ANTIBODY Aged Out No l onger eligible based on patient's age to complete this topic Procedures Procedure Name Priority Date/Time Associated Diagnosis Comments [facility] COMPREHENSIVE SINGLE Routine 03/04/2024 9:33 AM CDT related condition, antepartum GROUP B STREP PCR Routine 01/08/2017 HIV ANTIGEN ANTIBODY COMBO Routine 07/03/2016 COMPREHENSIVE METABOLIC PANEL Routine 11/10/2014 8:46 AM CDT Screening for diabetes mellitus PAP IMAGED THIN LAYER SCREEN Routine 11/10/2014 12:00 AM CDT Screening for malignant neoplasm of the cervix from Last 3 Months or Most Recently Relevant to Health Maintenance Results * [facility] US Comprehensive Single (03/04/2024 9:33 AM CDT) Anatomical Region Laterality Modality Ultrasound 03/04/2024 8:54 AM CDT Impressions 03/04/2024 1:29 PM CDT IMPRESSION ----- 1. Elizabeth at 20w 3d gestational age by LMP and 10 week US. 2. No anomalies commonly detected by ultrasound were identified in the detailed anatomic survey within the limits of ultrasound. 3. Growth parameters and estimated weight were consistent with gestational age predicted by assigned RAFFI. 4. The amniotic fluid volume appeared normal. 5. On transabdominal imaging the cervix appeared long and closed. Narrative 03/04/2024 1:29 PM CDT ?Comprehensive ----- Pat. Name: JOSE GOMEZ ? Study Date: ??03/04/2024 8:54am Pat. NO: ??[id number] ?Referring ??MD: RIVKA VALDOVINOS Site: ? Field Operations Supervisor: Hakeem Wies [facility] : ??1985 ?Age: ?? 38 ----- INDICATION ----- Advanced Maternal Age. METHOD ----- Transabdominal ultrasound examination. View: Sufficient ----- [place] . Number of fetuses: 1 DATING ----- ? Date ?Details ?Gest. age ?RAFFI LMP ?10/13/2023 ? 20 w + 3 d ? 07/19/2024 Previous U/S ?12/27/2023 ?GA, GA 10 w + 5 d ?20 w + 3 d ? 07/19/2024 U/S ? 03/04/2024 ? based upon AC, BPD, Femur, HC ?21 w + 2 d ? 07/13/2024 Assigned dating ?based on the LMP, selected on 03/04/2024 ? 20 w + 3 d ? 07/19/2024 GENERAL EVALUATION ----- Cardiac activity present. FHR 151 bpm. movements: present. Presentation: cephalic Placenta: Posterior, No Previa, > 2 cm from internal os Umbilical cord: 3 vessel cord Amniotic fluid: Amount of AF: normal. MVP 4.9 cm BIOMETRY ----- BPD ? 48.9 ?mm ? 20w 6d ?Gustavo ACE ? 70.4 ?mm ? 21w 6d ?Nicolaides HC ? 191.7 ?mm ? 21w 3d ? Hadlock Cerebellum tr ?22.6 ?mm ? 21w 2d ? Nicolaides Nuchal fold ?4.8 ? mm AC ? 167.4 ?mm ? 21w 5d ?84% ?Hadlock Femur ?34.5 ?mm ? 20w 6d ? Hadlock Humerus ? 33.7 ? mm ?21w 3d ?Junie Weight Calculation: EFW ?416 ? g ? 88% ?Hadlock EFW (lb,oz) ?0 lb 15 ? oz EFW by ? Hadlock ([id number]) Head / Face / Neck Biometry: Tube Cutter Operator ?5.5 ? mm CM ? 2.8 ? mm Nasal bone ? 7.2 ?mm ANATOMY ----- The following structures appear normal: Head / Neck ? Cranium. Head size. Head shape. Lateral ventricles. Choroid plexus. Midline falx. Cavum septi pellucidi. Cerebellum. Cisterna magna. ? Parenchyma. Thalami. Vermis. ? Neck. Nuchal fold. Face ? Lips. Profile. Nose. Maxilla. Mandible. Orbits. Lens. Heart / Thorax ?4-chamber view. RVOT view. LVOT view. 3-vessel view. 2-qmsain-yqswjdw view. Situs. Aortic arch view. Bicaval view. Ductal arch view. Superior ? vena cava. Inferior vena cava. Cardiac position. Cardiac size. Cardiac rhythm. ? Right lung. Left lung. Diaphragm. Abdomen ? Abdom. wall. Cord insertion. Stomach. Kidneys. Bladder. Liver. Bowel. Genitals. Spine ?Cervical spine. Thoracic spine. Lumbar spine. Sacral spine. Extremities / Skeleton ?Arms. Right arm. Right hand. Left arm. Left hand. Legs. Right leg. Right foot. Left leg. Left foot. sex: female. MATERNAL STRUCTURES ----- Cervix ?Visualized ? Appearance: Appears Closed ? Approach - Transabdominal: Cervical length 42.6 mm Right Ovary ?Visualized Left Ovary ?Visualized RECOMMENDATION ----- Thank-you for referring your patient for a comprehensive ultrasound. I discussed the findings on today's ultrasound with the patient. I reviewed the limitations of ultrasound both in detecting aneuploidy and structural abnormalities. Ultrasound can routinely detect 80-90% of structural abnormalities. She had low risk cell free DNA for genetic screening this . Further ultrasound studies as clinically indicated. Return to primary provider for continued care. If you have questions regarding today's evaluation or if we can be of further service, please contact the [facility]. anomalies may be present but not detected Procedure Note Deion Mercedes MD - 03/04/2024 Comprehensive ----- Pat. Name: JOSE GOMEZ Study Date: 03/04/2024 8:54am Pat. NO: [id number] Referring MD: RIVKA VALDOVINOS Site: Field Operations Supervisor: Hakeem Wise RDMS : 1985 Age: 38 ----- INDICATION ----- Advanced Maternal Age. METHOD ----- Transabdominal ultrasound examination. View: Sufficient ----- [place] . Number of fetuses: 1 DATING ----- DateDetailsGest. age RAFFI LMP w + 3 d 07/19/2024 Previous U/S 12/27/2023 GA, GA10 w + 5 d20 w + 3 d 07/19/2024 U/S 03/04/2024ased upon AC, BPD, Femur, HC21 w + 2 d 07/13/2024 Assigned dating based on the LMP, selected on w + 3 d 07/19/2024 GENERAL EVALUATION ----- Cardiac activity present. FHR 151 bpm. movements: present.Presentation: cephalic Placenta: Posterior, No Previa, > 2 cm from internal os Umbilical cord: 3 vessel cord Amniotic fluid: Amount of AF: normal. MVP 4.9 cm BIOMETRY ----- BPD 48.9mm 20w 6dHadlock OFD 70.4mm 21w 6dNicolaides HC 191.7mm 21w 3dHadlock Cerebellum tr 22.6mm 21w 2dNicolaides Nuchal fold 4.8mm AC 167.4mm 21w 5d 84%Hadlock Femur 34.5mm 20w 6dHadlock Humerus 33.7mm 21w 3dJeanty Weight Calculation: EFW 416g 88%Hadlock EFW (lb,oz) 0 lb 15oz EFW by Hadlock([id number]) Head / Face / Neck Biometry: Tube Cutter Operator 5.5mm CM 2.8mm Nasal bone 7.2mm ANATOMY ----- The following structures appear normal: Head / Neck Cranium. Head size. Head shape.Lateral ventricles. Choroid plexus. Midline falx. Cavum septi pellucidi.Cerebellum. Cisterna magna. Parenchyma. Thalami. Vermis. Neck. Nuchal fold. Face Lips. Profile. Nose. Maxilla.Mandible. Orbits. Lens. Heart / Thorax 4-chamber view. RVOT view. LVOT view.3-vessel view. 1-umaypo-hopaonq view. Situs. Aortic arch view. Bicavalview. Ductal arch view. Superior vena cava. Inferior vena cava.Cardiac position. Cardiac size. Cardiac rhythm. Right lung. Left lung.Diaphragm. Abdomen Abdom. wall. Cord insertion. Stomach.Kidneys. Bladder. Liver. Bowel. Genitals. Spine Cervical spine. Thoracic spine.Lumbar spine. Sacral spine. Extremities / Skeleton Arms. Right arm. Right hand. Left arm.Left hand. Legs. Right leg. Right foot. Left leg. Left foot. sex: female. MATERNAL STRUCTURES ----- Cervix Visualized Appearance: Appears Closed Approach - Transabdominal:Cervical length 42.6 mm Right Ovary Visualized Left Ovary Visualized RECOMMENDATION ----- Thank-you for referring your patient for a comprehensive ultrasound. I discussed the findings on today's ultrasound with the patient. Ireviewed the limitations of ultrasound both in detecting aneuploidy andstructural abnormalities. Ultrasound can routinely detect 80-90% of structural abnormalities. She had low riskcell free DNA for genetic screening this . Further ultrasound studies as clinically indicated. Return to primary provider for continued care. If you have questions regarding today's evaluation or if we can be offurther service, please contact the [facility]. anomalies may be present but not detected IMPRESSION ----- 1. [place] at 20w 3d gestational age by LMP and 10 week US. 2. No anomalies commonly detected by ultrasound were identified inthe detailed anatomic survey within the limits of prenatalultrasound. 3. Growth parameters and estimated weight were consistent withgestational age predicted by assigned RAFFI. 4. The amniotic fluid volume appeared normal. 5. On transabdominal imaging the cervix appeared long and closed. Rivka Valdovinos APRN CNM IMG MFM US ORDE MOUNA * Group B strep PCR (01/08/2017) Pathologist [facility] Group B Strep PCR negative Patient Reported LAB - MICRO GENERAL ORDERABLES * HIV Antigen Antibody Combo (07/03/2016) [facility] HIV Antigen Antibody Combo negative Blood specimen (specimen) Patient Reported LAB - BLOOD ORDERABL ES * Comprehensive metabolic panel (11/10/2014 8:46 AM CDT) [facility] Sodium 138 133 - 144 mmol/L [facility] Potassium 3.6 3.4 - 5.3 mmol/L [facility] Chloride 104 94 - 109 mmol/L [facility] Carbon Dioxide 27 20 - 32 mmol/L [facility] Anion Gap 7 3 - 14 mmol/L [facility] Glucose 78 70 - 99 mg/dL [facility] Urea Nitrogen 15 7 - 30 mg/dL [facility] Creatinine 0.85 0.52 - 1.04 mg/dL [facility] GFR Estimate 79 >60 mL/min/1. 7m2 [facility] Comment:Non GFR Calc GFR Estimate If Black >90 GFR Calc >60 mL/min/1. 7m2 [facility] Calcium 8.6 8.5 - 10.1 mg/dL [facility] Bilirubin Total 0.5 0.2 - 1.3 mg/dL [facility] Albumin 3.5 3.4 - 5.0 g/dL [facility] Protein Total 6.9 6.8 - 8.8 g/dL [facility] Alkaline Phosphatase 49 40 - 150 U/L [facility] ALT 24 0 - 50 U/L [facility] AST 10 0 - 45 U/L [facility] Blood specimen (specimen) 11/10/2014 8:46 AM CDT 11/10/2014 8:47 AM CDT Jose Trinidad PA-C LAB - BL OOD ORDERABLES [facility] [address] [place] [address] * (ABNORMAL) PAP imaged thin layer screen (11/10/2014 12:00 AM CDT) PAP LSIL(A) COPATH Copath Report Patient Name: JOSE CHENEY MR#: [id number] Specimen #: [id number] Collected: 11/10/2014 Received: 11/10/2014 Reported: 11/13/2014 06:55 Ordering Phy(s): JOSE TRINIDAD SPECIMEN/STAIN PROCESS: Pap imaged thin layer prep screening (Surepath, FocalPoint with guided screening) ? Pap-Cyto x 1 SOURCE: Cervical, endocervical Pap imaged thin layer prep screening (Surepath, FocalPoint with guided screening) SPECIMEN ADEQUACY: Satisfactory for evaluation. -Transformation zone component present. CYTOLOGIC INTERPRETATION: Epithelial Cell Abnormality: ??Squamous Cell: ??Low-grade squamous intraepithelial lesion (LSIL) encompassing: ??HPV/ mild dysplasia/ ROSEANNE 1. Electronically signed out by: Ranjeet Andersen M.D. Processed and screened at [facility], [facility] CLINICAL HISTORY: LMP: 10/27/2014 Previous normal pap Date of Last Pap: 09/25/2013, Papanicolaou Test Limitations: ??Cervical cytology is a screening test with limited sensitivity; regular screening is critical for cancer prevention; Pap tests are primarily effective for the diagnosis/preventi on of squamous cell carcinoma, not adenocarcinomas or other cancers. TESTING LAB LOCATION: [address] ??[id number] COLLECTION SITE: Client: ??[facility] Location: LVFP (R) COPATH Cytologic material (specimen) 11/10/2014 11/10/2014 2:07 PM CDT Jose Trinidad PA-C LAB - OP TIME CLINICAL SPECIMEN COPATH from Last 3 Months or Most Recently Relevant to Health Maintenance Care Teams Chief Librarian Branch Or Department Relationship Specialty Start Date End Date No Ref-Primary, Physician PCP - General 02/20/24
--- OUTSIDE RECORDS SUMMARY | 2024-04-01 17:53 | XMS_ITS | Encounter Summary ---
Author Organization [place] Address [address] [place] [address] Care Team Providers Care Product Consultant Name Role Phone Mandy Trinidad PA-C Primary Care Pr ovider Timothy Webb MD Primary Care Provider [phone] No Ref-Primary, Physician Primary Care Provider Reason for Visit * Reason Onset Date Comments MyChart Communication 02/11/2015 Encounter Details Date Type Department Care Team (Late st Contact Info) Description 02/11/2015 MyC Medical Advice [address] [address] Amy Rowell, DO [address] [address] MyChart Communication Social History Tobacco Use Types Packs/Day Years Used Date Smoking Tobacco: Never Smokeless Tobacco: Never Alcohol Use Standard Drinks/Week Comments Yes 0 (1 standard drink = 0.6 oz pur e alcohol) weekends-social Sex and Gender Information Value Date Recorded Sex Assigned at Not on file Gender Identity Not on file Sexual Orientation Not on file documented as of this encounter Miscellaneous Notes * Telephone Encounter - Melany Cohen RN - 02/12/2015 4:02 PM CDT Please respond to MyChart. Melany Noel, RN documented in this encounter Plan of Treatment Not on file documented as of this encounter Visit Diagnoses Diagnosis Cervicitis- Primary Cervicitis and endocervicitis documented in this encounter Care Teams Product Consultant Relationship Specialty Start Date End Date Mandy Trinidad PA-C [address] [place] [address] PCP - General Physician Director Of Billing 09/25/13 01/15/17 [place] [address] [place] [address] PCP - General 01/16/17 01/16/17 No Ref-Primary, Physician PCP - General 02/20/24 documented as of this encounter
--- OUTSIDE RECORDS SUMMARY | 2024-04-01 17:53 | XMS_ITS | Encounter Summary ---
Author Organization [place] Address [facility] [place] [address] Care Team Providers Care Insulation Engineman Name Role Phone No Ref-Primary, Physician Primary Care Provider Reason for Referral * Diagnostic Imaging Ultrasound (Routine) - Pending Review Specialty Diagnoses / Procedures Referred By Contac t Referred To Contact Radiology. Diagnoses related condition, antepartum Procedures [facility] US Comprehensive Single Rivka Valdovinos APRN [facility] [address] [place] [address] Referral ID Status Reason Start Date Expiration Date V isits Requested Visits Authorized [id number] Pending Review 02/20/2024 02/19/2025 1 1 * Consultation (Routine: Next available opening) - Pending Review Specialty Diagnoses / Procedures Referred By Contac t Referred To Contact Diagnoses related condition, antepartum Rivka Valdovinos APRN [facility] [address] [place] [address] [facility] [address] [place] [address] Referral ID Status Reason Start Date Expiration Date V isits Requested Visits Authorized [id number] Pending Review 02/20/2024 02/19/2025 1 1 Question Answer Preferred Location: [facility] [place] RAFFI 07/19/2024 Ultrasound Comprehensive US (>than 18 weeks GA) US PROC NONE MFM Issue Advanced Maternal Age *MUST request Genetic Counseling MFM MD Consultation (unrelated to Ultrasound findings): No Inflammatory Bowel Disease Clinic: Joint MFM and GI Consultation: No Chronic Kidney Disease: Joint MFM and Nephrology Consultation No Cardio-Obstetrics: Joint MFM and Cardiology Consultation No Genetic Counseling Consultation: No fax [facility] Rivka Valdovinos [phone] Comments AMA Encounter Details Date Type Department Care Team (Latest Contact Info) Description 02/20/2024 Transcribe Orders [facility] Maternal Medicine [facility] [place] [address] [facility] [address] [place] [phone] Rivka Valdovinos APRN CNM [address] [address] related condition, antepartum (Primary Dx) Social History Tobacco Use Types Packs/Day Years Used Date Smoking Tobacco: Never Smokeless Tobacco: Never Alcohol Use Standard Drinks/Week Comments Yes 0 (1 standard drink = 0.6 oz pur e alcohol) weekends-social Adolescent Education Answer Date Record ed Getting School Help Needed Not on file 12/16 Sex and Gender Information Value Date Recorded Sex Assigned at Not on file Gender Identity Not on file Sexual Orientation Not on file documented as of this encounter Plan of Treatment Scheduled Referrals Name Type Priority Associated Diagnoses Orde r Schedule [facility] Med Ctr Referral - Referral Routine: Next available opening related condition, antepartum Expected: 03/07/2024 (Approximate), Expires: 08/18/2024 documented as of this encounter Results * [facility] US Comprehensive Single (03/04/2024 9:33 AM CDT) [...] 1:29 PM CDT ?Comprehensive ----- Pat. Name: BROOKLYNN GOMEZ ? Study Date: ??03/04/2024 8:54am Pat. NO: ??[id number] ?Referring ??MD: RIVKA VALDOVINOS Site: ? [place] Block Setter: Hakeem Wise RDMS : ??1985 ?Age: ?? 38 ----- INDICATION [...] 15 ? oz EFW by ? Hadlock ([id number]) Head / Face / Neck Biometry: Assistant Producer ?5.5 ? mm CM ? 2.8 ? [...] view. RVOT view. LVOT view. 3-vessel view. 1-kpsvmm-cxtgukq view. Situs. Aortic arch view. Bicaval view. [...] MD - 03/04/2024 Comprehensive ----- Pat. Name: BROOKLYNN GOMEZ Study Date: 03/04/2024 8:54am Pat. NO: [id number] Referring MD: RIVKA VALDOVINOS Site: [place] Block Setter: Hakeem Wise RDMS : 1985 Age: 38 [...] EFW (lb,oz) 0 lb 15oz EFW by Hadlock([id number]) Head / Face / Neck Biometry: Assistant Producer 5.5mm CM 2.8mm Nasal bone 7.2mm ANATOMY ----- The following structures appear normal: Head / Neck Cranium. Head size. Head shape.Lateral ventricles. Choroid plexus. Midline falx. Cavum septi pellucidi.Cerebellum. Cisterna magna. Parenchyma. Thalami. Vermis. Neck. Nuchal fold. Face Lips. Profile. Nose. Maxilla.Mandible. Orbits. Lens. Heart / Thorax 4-chamber view. RVOT view. LVOT view.3-vessel view. 6-uephrs-omcdzpm view. Situs. Aortic arch view. Bicavalview. Ductal [...] cervix appeared long and closed. Rivka Valdovinos APRN, CNM [facility] US [facility]WN [facility]IRE documented in this encounter Visit Diagnoses Diagnosis related condition, antepartum- Primary related condition, antepartum documented in this encounter Care Teams Insulation Engineman Relationship Specialty Start Date End Date No Ref-Primary, Physician PCP - General 02/20/24 documented as of this encounter
--- OUTSIDE RECORDS SUMMARY | 2024-04-01 17:53 | XMS_ITS | Clinical Summary ---
Author Organization [facility] Address [address] [place] [address] Care Team Providers Care Scoop Machine Operator Name Role Phone Unassigned, Provider Primary Care Provider Unava ilable Source Comments You are receiving this document as you are listed as the primary care provider,follow-up provider, or the patient has been referred to you for consultation.This is in compliance with the Medicare andThe [facility] EHR Incentive Program,which states Providers who transition their patient to another setting of careor provider of care or refers their patient to another provider of care shouldprovide summary care record for each transition of care or referral. [facility] Allergies No known active allergies Medications Medication [...] 174 cm (5' 8.5) 07/03/2016 8:38 AM CHIEF TECHNOLOGIST Body Mass Index 28.56 07/03/2016 8:38 AM CHIEF TECHNOLOGIST Plan of Treatment Health Maintenance Due Date Last Done Comments Cervical Cancer Screening Due 1985 Hep C Screening (Preventive Services) 1985 Adult Preventive Visit 10/18/2003 HepB (1) 2004 COVID-19 Vaccine ( - 2023- season) 2024 Influenza (#1) 2024 DTaP/Tdap/Td (7 - Tdap) [...] patient's age to complete this topic RSV Aged Out No longer eligi ble based on patient's age to complete this topic Pneumococcal Aged Out No longer eligi ble based on patient's age to complete this topic Procedures Procedure Name Priority Date/Time Associated Diagnosis Comments HIV-1 P24 AND HIV-1/HIV-2 ANTIBODIES Routine 07/03/2016 9:46 AM CHIEF TECHNOLOGIST Screening examination for venereal disease from Last 3 Months or Most Recently Relevant to Health Maintenance Results * LAB HIV-1 p24 AND HIV-1/HIV-2 ANTIBODIES (07/03/2016 9:46 AM CHIEF TECHNOLOGIST) HIV-1 p24 Ag and HIV-1/HIV-2 Ab Nonreactive Nonreactive PN SOFT 07/03/2016 9:46 AM CHIEF TECHNOLOGIST 07/03/2016 12:56 PM CHIEF TECHNOLOGIST Narrative PN SOFT - 07/03/2016 2:46 PM CHIEF TECHNOLOGIST Performed at [address] [address] CLIA number [id number] Nereyda Martines APRN, CNP LAB_1 PN SOFT [address] [place] [address] from Last 3 Months or Most Recently Relevant to Health Maintenance Care Teams Scoop Machine Operator Relationship Specialty Start Date End Date Unassigned, Provider [address] [place] [address] PCP - General 08/18/00
--- OUTSIDE RECORDS SUMMARY | 2024-04-01 17:53 | XMS_ITS | Encounter Summary ---
Author Organization [facility] Address [address] [place] [address] Care Team Providers Care Prepared Foods Team Leader Name Role Phone No Ref-Primary, Physician Primary Care Provider Encounter Details Date Type Department Care Team (Latest Contact Info) Description 03/04/2024 Travel Social History Tobacco Use Types Packs/Day Years [...] as of this encounter Plan of Treatment Not on file documented as of this encounter Visit Diagnoses Not on filedocumented in this encounter Care Teams Prepared Foods Team Leader Relationship Specialty Start Date End Date No Ref-Primary, Physician PCP - General 02/20/24 documented as of this encounter
--- OUTSIDE RECORDS SUMMARY | 2024-04-01 17:53 | XMS_ITS | Encounter Summary ---
Author Organization [facility] Address [address] [place] [address] Care Team Providers Care Motor Vehicle License Clerk Name Role Phone Shanon Rushing MD Primary Care Provider [phone] Mandy Trinidad PA-C Primary Care Pr ovider Timothy Webb MD Primary Care Provider [phone] No Ref-Primary, Physician Primary Care Provider Encounter Details Date Type Department Care Team (Late st Contact Info) Description 07/29/2012 MyC Medical Advice [facility] [id number] [place] [address] Shanon Rushing MD [address] [place] [address] Social History Tobacco Use Types Packs/Day Years [...] on filedocumented in this encounter Care Teams Motor Vehicle License Clerk Relationship Specialty Start Date End Date Shanon Rushing MD PCP - General Family Practice 07/11/12 09/24/13 Mandy Trinidad PA-C [address] [place] [address] PCP - General Physician Bundle Clerk 09/25/13 01/15/17 [place] [address] [place] [address] PCP - General 01/16/17 01/16/17 No Ref-Primary, Physician PCP - General 02/20/24 documented as of this encounter
--- OUTSIDE RECORDS SUMMARY | 2024-04-01 17:53 | XMS_ITS | Referral Summary ---
Author Organization [facility] Address [address] [place] [address] Care Team Providers Care Loss Prevention Leader Name Role Phone No Ref-Primary, Physician Primary Care Provider Encounters Date Type Department Care Team Description 03/04/2024 Travel 03/04/2024 9:15 AM CDT Office Visit [facility] [address] [facility] [address] [place] [phone] Deion Mercedes MD Multigravida of advanced maternal age in second trimester (Primary Dx) 03/04/2024 8:45 AM CDT - 03/04/2024 11:59 PM CDT Hospital Encounter [facility] Medicine [facility] [address] [facility] [address] [place] [phone] Deion Mercedes MD related condition, antepartum Discharge Disposition: Home or Self Care 02/25/2024 PRE VISIT [facility] [address] [facility] [address] [place] [phone] Kellen Medley RN Ultrasound (L2-AMA) 02/20/2024 Medical Correspondence [facility] Information Management [address] [place] [address] [address] [place] [address] Scan, Non-Provider 02/20/2024 Transcribe Orders [facility] [address] [facility] [address] [place] [address] Rivka Valdovinos APRN CNM related condition, antepartum (Primary Dx) 01/31/2024 Medical Correspondence [facility] Information Management [address] [facility] [address] [place] [address] Scan, Non-Provider from Last 3 Months Allergies No known active allergies Medications Medication [...] LSIL) 11/09/2014 Overview: 11/10/14: LSIL. Plan colp.02/10/15: [place] - WNL. Plan cotest pap & HPV in 1 year Tracking started. Contraception management 10/11/2012 Estimated Date of Delivery Comme nts Yes 07/19/2024 Based on last me nstrual period of 10/13/2023 Resolved Problems Problem Noted Date Diagnosed Date Resolved Date Hyperlipidemia LDL goal <160 07/11/2012 12/17/2014 Insomnia 07/11/2012 12/17/2014 Immunizations Name Administration Dates Next Due DTAP (<7y) 11/19/1990,06/29/1986,03/19/1986 ,01/21/1986 HPV 03/08/2011, 0,03/20/2008,07/12/2007, HepB 05/30/2004,01/25/2004,12/02/2003 Influenza (IIV3) PF 01/21/2012 MMR 02/05/1998,06/29/1989 Mantoux Tuberculin Skin Test 03/08/2011,04/26/20 10 Meningococcal (Menomune??) 12/02/2003 Poliovirus, inactivated (IPV) 11/19/1990, 987,03/19/1986,01/21/1986 TD,PF 7+ (Tenivac) 02/02/1998 TDAP (Adacel,Boostrix) 01/23/2008 Social History Tobacco Use Types Packs/Day Years [...] 02/07/2017 11:10 AM CDT Plan of Treatment Not on file Procedures Procedure Name Priority Date/Time Associated Diagnosis Comments [facility] COMPREHENSIVE SINGLE Routine 03/04/2024 9:33 [...] Recently Relevant to Health Maintenance Results * [facility] US Comprehensive Single (03/04/2024 9:33 AM [...] ? Study Date: ??03/04/2024 8:54am Pat. NO: ??[id number] ?Referring ??MD: RIVKA VALDOVINOS Site: ? Machine Joiner Cementer: Hakeem Wise RDMS : ??1985 ?Age: ?? [...] 15 ? oz EFW by ? Hadlock ([id number]) Head / Face / Neck Biometry: Operations And Maintenance Technician ?5.5 ? mm CM ? 2.8 ? [...] view. RVOT view. LVOT view. 3-vessel view. 0-sqfmkx-xgwsnhp view. Situs. Aortic arch view. Bicaval view. [...] GOMEZ Study Date: 03/04/2024 8:54am Pat. NO: [id number] Referring MD: RIVKA VALDOVINOS Site: Machine Joiner Cementer: Hakeem Wise RDMS : 1985 Age: 38 [...] EFW (lb,oz) 0 lb 15oz EFW by Hadlock([id number]) Head / Face / Neck Biometry: Operations And Maintenance Technician 5.5mm CM 2.8mm Nasal bone 7.2mm ANATOMY ----- The following structures appear normal: Head / Neck Cranium. Head size. Head shape.Lateral ventricles. Choroid plexus. Midline falx. Cavum septi pellucidi.Cerebellum. Cisterna magna. Parenchyma. Thalami. Vermis. Neck. Nuchal fold. Face Lips. Profile. Nose. Maxilla.Mandible. Orbits. Lens. Heart / Thorax 4-chamber view. RVOT view. LVOT view.3-vessel view. 9-ztgvqo-hjzxesw view. Situs. Aortic arch view. Bicavalview. Ductal [...] Rivka Valdovinos APRN CNM IMG MFM US FAWN FREIRE * Group B strep PCR (01/08/2017) [facility] Group B Strep PCR negative Patient Reported LAB - MICRO GENERAL ORDERABLES * HIV Antigen Antibody Combo (07/03/2016) [facility] HIV Antigen Antibody Combo negative Blood specimen (specimen) Patient Reported LAB - BLOOD ORDERABL ES * Comprehensive metabolic panel (11/10/2014 8:46 AM CDT) [facility] Sodium 138 133 - 144 mmol/L [facility] Potassium 3.6 3.4 - 5.3 mmol/L [facility] Chloride 104 94 - 109 mmol/L [facility] Carbon Dioxide 27 20 - 32 mmol/L [facility] Anion Gap 7 3 - 14 mmol/L [facility] Glucose 78 70 - 99 mg/dL [facility] Urea Nitrogen 15 7 - 30 mg/dL [facility] Creatinine 0.85 0.52 - 1.04 mg/dL [facility] GFR Estimate 79 >60 mL/min/1. 7m2 [facility] Comment:Non GFR Calc GFR Estimate If Black >90 GFR Calc >60 mL/min/1. 7m2 [facility] Calcium 8.6 8.5 - 10.1 mg/dL [facility] Bilirubin Total 0.5 0.2 - 1.3 mg/dL [facility] Albumin 3.5 3.4 - 5.0 g/dL [facility] Protein Total 6.9 6.8 - 8.8 g/dL [facility] Alkaline Phosphatase 49 40 - 150 U/L [facility] ALT 24 0 - 50 U/L [facility] AST 10 0 - 45 U/L [facility] Blood specimen (specimen) 11/10/2014 8:46 AM CDT 11/10/2014 8:47 AM CDT Jose Trinidad PA-C LAB - BL OOD ORDERABLES Performing Organization Address City/State/[facility] Co de Phone Number [facility] [address] [place] [address] * (ABNORMAL) PAP imaged thin layer screen (11/10/2014 12:00 AM CDT) PAP LSIL(A) COPCHINA Lee Report Patient Name: JOSE CHENEY MR#: [id number] Specimen #: [id number] Collected: 11/10/2014 Received: 11/10/2014 Reported: 11/13/2014 06:55 [...] Ranjeet Andersen M.D. Processed and screened at [facility] CLINICAL HISTORY: LMP: 10/27/2014 Previous normal pap Date of Last Pap: 09/25/2013, Papanicolaou Test Limitations: ??Cervical cytology is a screening test with limited sensitivity; regular screening is critical for cancer prevention; Pap tests are primarily effective for the diagnosis/preventi on of squamous cell carcinoma, not adenocarcinomas or other cancers. TESTING LAB LOCATION: [address] ??[id number] COLLECTION SITE: Client: ??[facility] Location: [facility]FP (R) COPATH Cytologic material (specimen) 11/10/2014 11/10/2014 2:07 PM CDT Jose Trinidad PA-C LAB - OP TIME CLINICAL SPECIMEN COPATH from Last 3 Months or Most Recently Relevant to Health Maintenance Care Teams Loss Prevention Leader Relationship Specialty Start Date End Date No Ref-Primary, Physician PCP - General 02/20/24
--- OUTSIDE RECORDS SUMMARY | 2024-04-01 17:53 | XMS_ITS | Encounter Summary ---
Author Organization [facility] Address [address] [place] [address]. [place] [address] Care Team Providers Care Tractor Operator Laser Leveling Name Role Phone Mandy Trinidad PA-C Primary Care Pr ovider Timothy Webb MD Primary Care Provider No Ref-Primary, Physician Primary Care Provider Reason for Visit * Reason Onset Date Comments MyChart Communication 01/19/2015 Encounter Details Date Type Department Care Team (Latest Contact Info) Description 01/19/2015 [facility] [address] [place] [address] Mandy Trinidad PA-C [id number] [place] [address] MyChart Communication Social History Tobacco Use Types [...] encounter Miscellaneous Notes * Telephone Encounter - Susan Lo RN - 01/19/2015 8:23 AM CDT Can you advise on mychart below Susan Lo RN, BSN documented in this encounter Plan of Treatment Not on file documented as of this encounter Visit Diagnoses Diagnosis General counseling for initiation of other contraceptive measures- Primary documented in this encounter Care Teams Tractor Operator Laser Leveling Relationship Specialty Start Date End Date Mandy Trinidad PA-C [address] [place] [address] PCP - General Physician Carpenter Labor Supervisor 09/25/13 01/15/17 [place] [address] [place] [address] PCP - General 01/16/17 01/16/17 No Ref-Primary, Physician PCP - General 02/20/24 documented as of this encounter
--- OUTSIDE RECORDS SUMMARY | 2024-04-01 17:53 | XMS_ITS | Encounter Summary ---
Author Organization [facility] Address [address] [place] [address] Care Team Providers Care Manager Primary Name Role Phone No Ref-Primary, Physician Primary Care Provider Reason for Visit * Reason Comments Ultrasound L2-AMA Encounter Details Date Type Department Care Team (Late st Contact Info) Description 02/25/2024 PRE VISIT [facility] [place] [address] [facility] [address] [place] [address] Kellen Medley, MARISELA Ultrasound (L2-AMA) Social History Tobacco Use Types Packs/Day Years [...] on filedocumented in this encounter Care Teams Manager Primary Relationship Specialty Start Date End Date No Ref-Primary, Physician PCP - General 02/20/24 documented as of this encounter
--- OUTSIDE RECORDS SUMMARY | 2024-04-01 17:53 | XMS_ITS | Encounter Summary ---
Author Organization [facility] Address [address] [place] [address] Care Team Providers Care Visitor Service Assistant Name Role Phone Shanon Rushing MD Primary Care Provider [phone] Mandy TrinidadC Primary Care Pr ovider Timothy Webb MD Primary Care Provider [phone] No Ref-Primary, Physician Primary Care Provider Reason for Visit * Reason Onset Date Comments MyChart Communication 07/29/2012 high norberto sterol Encounter Details Date Type Department Care Team (Latest Contact Info) Description 07/29/2012 MyC Medical Advice [address] [phone] Shanon Rushing MD [address] [place] [phone] MyChart Communication (high cholesterol) Social History Tobacco Use Types Packs/Day Years [...] encounter Miscellaneous Notes * Telephone Encounter - Prerna Chung - 07/30/2012 12:47 PM CST Current Health Issues high cholesterol Inability to fall asleep or stay asleep It is on my current health issues. Patient is asking for us to take the high cholesterol of her chart. Can you find out where the information she is talking about. I sent patient a email letting her know we are looking into this and will get back to her. Prerna Chung Commercial Account Officer LSTERY REPAIRER documented in this encounter Plan of Treatment Not on file documented as of this encounter Visit Diagnoses Not on filedocumented in this encounter Care Teams Visitor Service Assistant Relationship Specialty Start Date End Date Shanon Rushing MD PCP - General Family Practice 07/11/12 09/24/13 Mandy Trinidad PA-C [address] [place] [address] PCP - General Physician Automotive Electrical Fitter 09/25/13 01/15/17 [place] [address] [place] [address] PCP - General 01/16/17 01/16/17 No Ref-Primary, Physician PCP - General 02/20/24 documented as of this encounter
--- OUTSIDE RECORDS SUMMARY | 2024-04-01 17:53 | XMS_ITS | Encounter Summary ---
Author Organization [facility] Address [address] [place] [address]. [place] [address] Care Team Providers Care Gaming Manager Name Role Phone Mandy Trinidad PA-C Primary Care Pr ovider Timothy Webb MD Primary Care Provider [phone] No Ref-Primary, Physician Primary Care Provider Encounter Details Date Type Department Care Team (Late st Contact Info) Description 10/29/2013 MyC Medical Advice [facility] [address] [place] [phone] Mandy Trinidad PA-C [address] [place] [address] Social History Tobacco Use Types Packs/Day Years [...] on filedocumented in this encounter Care Teams Gaming Manager Relationship Specialty Start Date End Date Mandy Trinidad PA-C [address] [place] [address] PCP - General Physician Cotton Roll Packer 09/25/13 01/15/17 [place] [address] [place] [address] PCP - General 01/16/17 01/16/17 No Ref-Primary, Physician PCP - General 02/20/24 documented as of this encounter
--- OUTSIDE RECORDS SUMMARY | 2024-04-01 17:53 | XMS_ITS | Encounter Summary ---
Author Organization [facility] Address [address] [place] [address] Care Team Providers Care Final Canoe Inspector Name Role Phone No Ref-Primary, Physician Primary Care Provider Encounter Details Date Type Department Care Team (Late st Contact Info) Description 01/31/2024 Medical Correspondence [facility] Information Management [address] [facility] [address] [place] [address] Scan, Non-Provider Social History Tobacco Use Types Packs/Day Years [...] on filedocumented in this encounter Care Teams Final Canoe Inspector Relationship Specialty Start Date End Date No Ref-Primary, Physician PCP - General 02/20/24 documented as of this encounter
--- OUTSIDE RECORDS SUMMARY | 2024-04-01 17:53 | XMS_ITS | Encounter Summary ---
Author Organization [facility] Address [address] [place] [address] Care Team Providers Care Integration Software Developer Name Role Phone No Ref-Primary, Physician Primary Care Provider Encounter Details Date Type Department Care Team (Late st Contact Info) Description 02/20/2024 Medical Correspondence [facility] Information Management [address] [facility] [address] [place] [address] Scan, Non-Provider Social History Tobacco Use Types [...] on filedocumented in this encounter Care Teams Integration Software Developer Relationship Specialty Start Date End Date No Ref-Primary, Physician PCP - General 02/20/24 documented as of this encounter
--- OUTSIDE RECORDS SUMMARY | 2024-04-01 17:53 | XMS_ITS | Encounter Summary ---
Author Organization [facility] Address [address] [place] [address] Care Team Providers Care Mental Health Tech Name Role Phone No Ref-Primary, Physician Primary Care Provider Reason for Referral * Diagnostic Imaging Ultrasound (Routine) - Pending Review Specialty Diagnoses / Procedures Referred By Contac t Referred To Contact Radiology. Diagnoses related condition, antepartum Procedures [facility] [address] [place] [address] Referral ID Status Reason Start Date Expiration Date V isits Requested Visits Authorized [id number] Pending Review 02/20/2024 02/19/2025 1 1 Reason for Visit * Diagnostic Imaging Ultrasound (Routine) - Pending Review Specialty Diagnoses / Procedures Referred By Contac t Referred To Contact Radiology. Diagnoses related condition, antepartum Procedures [facility] [address] [place] [address] Referral ID Status Reason Start Date Expiration Date V isits Requested Visits Authorized [id number] Pending Review 02/20/2024 02/19/2025 1 1 Encounter Details Date Type Department Care Team (Latest Contact Info) Description 03/04/2024 8:45 AM CDT - 03/04/2024 11:59 PM CDT Hospital Encounter [facility] [place] [address] [place] [address] Deion Mercedes MD [address] [place] [address] related condition, antepartum Discharge Disposition: Home or Self Care Social History Tobacco Use Types Packs/Day Years [...] on file documented as of this encounter Medications at Time of Discharge Medication Sig Dispensed Refills Start Date End Date fish oil-omega-3 fatty acids (OMEGA 3) 1000 MG capsule Take 1 capsule by mouth 2 times daily. 90 capsule 3 07/11/2012 ibuprofen (ADVIL/MOTRIN) 400 MG tabletIndications: (spontaneous vaginal delivery) Take 1-2 tablets (400-800 mg) by mouth every 6 hours as needed for other (cramping) 60 tablet 02/09/2017 MV-Min-Fe Fum-FA-DHA ( 1 PO) senna-docusate (SENOKOT-S;PERICOLACE) 8.6-50 MG per tabletIndications: (spontaneous vaginal delivery) Take 1-2 tablets by mouth 2 times daily 60 tablet 02/09/2017 documented as of this encounter Plan of Treatment Not on file documented as of this encounter Procedures Procedure Name Priority Date/Time Associated Diagnosis Comments [facility] US COMPREHENSIVE SINGLE Routine 03/04/2024 9:33 AM CDT related condition, antepartum documented in this encounter Results * [facility] US Comprehensive Single (03/04/2024 9:33 AM CDT) [...] ? Study Date: ??03/04/2024 8:54am Pat. NO: ??[id number] ?Referring ??: RIVKA VALDOVINOS Site: ? Intermodal Dispatcher: Hakeem Wise RDMS : ??1985 ?Age: ?? [...] BPD ? 48.9 ?mm ? 20w 6d ?Hadlock OFD ? 70.4 ?mm ? 21w 6d ?Nicolaides [...] lb 15 ? oz EFW by ? Gustavo ([id number]) Head / Face / Neck Biometry: Bar Helper ?5.5 ? mm CM ? 2.8 ? [...] view. RVOT view. LVOT view. 3-vessel view. 3-rjwqba-kehcnwf view. Situs. Aortic arch view. Bicaval view. [...] GOMEZ Study Date: 03/04/2024 8:54am Pat. NO: [id number] Referring MD: RIVKA VALDOVINOS Site: Inter[employer] Dispatcher: Hakeem Wise RDMS : 1985 Age: 38 [...] EFW (lb,oz) 0 lb 15oz EFW by Hadlock([id number]) Head / Face / Neck Biometry: Bar Helper 5.5mm CM 2.8mm Nasal bone 7.2mm ANATOMY ----- The following structures appear normal: Head / Neck Cranium. Head size. Head shape.Lateral ventricles. Choroid plexus. Midline falx. Cavum septi pellucidi.Cerebellum. Cisterna magna. Parenchyma. Thalami. Vermis. Neck. Nuchal fold. Face Lips. Profile. Nose. Maxilla.Mandible. Orbits. Lens. Heart / Thorax 4-chamber view. RVOT view. LVOT view.3-vessel view. 2-kteoii-gyqxrww view. Situs. Aortic arch view. Bicavalview. Ductal [...] APRN CNM IMG MFM US FAWN FREIRE documented in this encounter Visit Diagnoses Diagnosis related condition, antepartum documented in this encounter Care Teams Mental Health Tech Relationship Specialty Start Date End Date No Ref-Primary, Physician PCP - General 02/20/24 documented as of this encounter
--- OUTSIDE RECORDS SUMMARY | 2024-04-01 17:53 | XMS_ITS | Encounter Summary ---
Author Organization [facility] Address [address] [facility] [place] [address] Care Team Providers Care Proc Tech Name Role Phone No Ref-Primary, Physician Primary Care Provider Reason for Visit * Reason Comments Ultrasound L2-AMA Encounter Details Date Type Department Care Team (Late st Contact Info) Description 03/04/2024 9:15 AM CDT Office Visit [facility] [place] [address] [place] [address] Deion Mercedes MD [address] [facility] [address] [place] [address] Multigravida of advanced maternal age in second trimester (Primary Dx) Social History Tobacco Use Types [...] on file documented as of this encounter Progress Notes * Deion Mercedes MD - 03/04/2024 9:15 AM CDT Please see full imaging report from ViewPoint program under imaging tab. Deion Mercedes MD Maternal Medicine documented in this encounter Nursing Notes * Kellen Medley, RN - 03/04/2024 9:15 AM CDT Patient reports positive movement, denies contractions, leaking of fluid, or bleeding. SBAR given to NYDIA VASQUEZ, see their note in Epic. documented in this encounter Plan of Treatment Not on file documented as of this encounter Visit Diagnoses Diagnosis Multigravida of advanced maternal age in second trimester- Primary documented in this encounter Care Teams Proc Tech Relationship Specialty Start Date End Date No Ref-Primary, Physician PCP - General 02/20/24 documented as of this encounter
--- OUTSIDE RECORDS SUMMARY | 2024-04-01 17:53 | XMS_ITS | Encounter Summary ---
Author Organization [facility] Address [address] [place] [address] Care Team Providers Care Firer Helper Name Role Phone Shanon Rushing MD Primary Care Provider [phone] Mandy Trinidad PA-C Primary Care Pr ovider Timothy Webb MD Primary Care Provider [phone] No Ref-Primary, Physician Primary Care Provider Reason for Visit * Reason Onset Date Comments MyChart Communication 10/29/2012 Encounter Details Date Type Department Care Team (Latest Contact Info) Description 10/29/2012 MyC Medical Advice [address] [address] Shanon Rushing MD [address] [place] [address] MyChart Communication () Social History Tobacco Use Types Packs/Day Years [...] on filedocumented in this encounter Care Teams Firer Helper Relationship Specialty Start Date End Date Shanon Rushing MD PCP - General Family Practice 07/11/12 09/24/13 Mandy Trinidad PA-C [address] [place] [address] PCP - General Physician Automatic Beam Warper Tender 09/25/13 01/15/17 [place] [address] [place] [address] PCP - General 01/16/17 01/16/17 No Ref-Primary, Physician PCP - General 02/20/24 documented as of this encounter
[2024-04-01 21:24] LABS: Bacterial Vaginosis* Negative (Negative); Candida glab/krus NOT DETECTED (No Detected); Candida species NOT DETECTED (No Detected); Trichomonas vaginalis NOT DETECTED (No Detected)
== END 2024-04-01 17:51 | disposition home or self-care (01) ==
PROVIDERS: Visit Provider Registered Nurse
DX: O09.522 Supervision of elderly multigravida, second trimester (principal); N89.8 Other specified noninflammatory disorders of vagina; Z65.9 Problem related to unspecified psychosocial circumstances; Z3A.24 24 weeks gestation of pregnancy
CPT/HCPCS: 81513; 87481; 87661

== ENCOUNTER 2024-05-07 15:07 | Outpatient (CLI) | payer BC, SELFPAY ==
--- OUTSIDE RECORDS SUMMARY | 2024-05-10 13:13 | XMS_ITS | Clinical Summary ---
Author Organization [facility] Address [address] [place] [address] Care Team Providers Care Health Lead Name Role Phone Unassigned, Provider Primary Care Provider Unava ilable Source Comments You are receiving this document as you are listed as the primary care provider,follow-up provider, or the patient has been referred to you for consultation.This is in compliance with the Medicare and[facility] EHR Incentive Program,which states Providers who transition their patient to another setting of careor provider of care or refers their patient to another provider of care shouldprovide summary care record for each transition of care or referral. [facility] Allergies No known active allergies Medications Medication [...] 174 cm (5' 8.5) 07/03/2016 8:38 AM AIRCRAFT TIME CLERK Body Mass Index 28.56 07/03/2016 8:38 AM AIRCRAFT TIME CLERK Plan of Treatment Health Maintenance Due Date [...] on patient's age to complete this topic Infant RSV Aged Out No longer eligi ble based on patient's age to complete this topic Pneumococcal Aged Out No longer eligi ble based on patient's age to complete this topic Procedures Procedure Name Priority Date/Time Associated Diagnosis Comments HIV-1 P24 AND HIV-1/HIV-2 ANTIBODIES Routine 07/03/2016 9:46 AM AIRCRAFT TIME CLERK Screening examination for venereal disease from Last 3 Months or Most Recently Relevant to Health Maintenance Results * LAB HIV-1 p24 AND HIV-1/HIV-2 ANTIBODIES (07/03/2016 9:46 AM AIRCRAFT TIME CLERK) HIV-1 p24 Ag and HIV-1/HIV-2 Ab Nonreactive Nonreactive PN SOFT 07/03/2016 9:46 AM AIRCRAFT TIME CLERK 07/03/2016 12:56 PM AIRCRAFT TIME CLERK Narrative PN SOFT - 07/03/2016 2:46 PM AIRCRAFT TIME CLERK Performed at [address] [address] CLIA number [id number] Nereyda Martines APRN, CNP LAB_1 PN SOFT [address] [place] [address] from Last 3 Months or Most Recently Relevant to Health Maintenance Care Teams Health Lead Relationship Specialty Start Date End Date Unassigned, Provider [address] [place] [address] PCP - General 08/18/00
--- OUTSIDE RECORDS SUMMARY | 2024-05-10 13:13 | XMS_ITS | Encounter Summary ---
Author Organization [facility] Address [address] [place] [address] Care Team Providers Care Batting Machine Operator Name Role Phone No Ref-Primary, Physician Primary Care Provider Reason for Visit * Reason Comments Ultrasound L2-AMA Encounter Details Date Type Department Care Team (Late st Contact Info) Description 02/25/2024 PRE VISIT [facility] [place] [address] [place] [address] Kellen Medley, MARISELA Ultrasound (L2-AMA) [...] Recorded Sex Assigned at Not on file Legal Sex Female 3:14 AM TEMPLATE CLERK Gender Identity Not on file Sexual Orientation Not on file 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
--- OUTSIDE RECORDS SUMMARY | 2024-05-10 13:13 | XMS_ITS | Clinical Summary ---
Author Organization [facility] Address [place], [place] [address] Care Team Providers Care Purchase Request Editor Name Role Phone AllysonRosa pina MARTÍN Primary Care Provider [phone] Allergies No known active allergies Medications Medication Sig Dispensed Refills Start Date End Date Status Pwapv-3-WDO-EPA-Fish Oil 1,000 mg (120 mg-180 mg) cap Take 1 capsule by mouth. 0 01/11/2018 Active vitamin-folic acid 1 mg ( RX) tablet/capsule Take 1 tablet by mouth once daily. 0 01/11/2018 Active Active Problems Problem Noted Date Diagnosed Date ASCUS of cervix with negative high risk HPV 01/2016 Overview (11/29/2015): 11/2015 Colposcopy Advised Low serum high density [...] 64 01/11/2018 9:41 AM CDT Temperature 37.7 C (99.8 F) 01/30/2015 3:30 PM CDT Respiratory Rate 20 01/30/2015 3:30 PM CDT [...] 12+ 01/11/2019 01/11/2018, 11/17/2015 COVID-19 vaccine series (2023- season) 2024 Influenza for age 9-49 02/10/2024 Pap test for age 21-65 04/29/2024 , 04/29/2021, 09/27/2018, Additional history exists Tetanus booster 11/27/2026 11/27/2016, 01/23/2008 Tdap Completed 11/27/2016, 01/23/2008 Pneumococcal series for age 6-64 Aged Out No longer eligible based on patient's age to complete this topic Procedures Procedure Name Priority Date/Time Associated Diagnosis Comments HPV HIGH RISK Routine 04/29/2021 10:10 AM STRETCHER DRIER OPERATOR from Last 3 Months or Most Recently Relevant to Health Maintenance Results * HPV HIGH RISK (04/29/2021 10:10 AM STRETCHER DRIER OPERATOR) TYPE 16 Negative Negative 05/04/2021 2:12 PM STRETCHER DRIER OPERATOR [facility] TYPE 18 Negative Negative 05/04/2021 2:12 PM STRETCHER DRIER OPERATOR [facility] OTHER HIGH RISK TYPES Negative Negative 05/04/2021 2:12 PM STRETCHER DRIER OPERATOR [facility] Other (Cervical/Vagina l) 04/29/2021 10:10 AM STRETCHER DRIER OPERATOR 05/02/2021 9:24 AM STRETCHER DRIER OPERATOR Narrative [facility] - 05/04/2021 2:12 PM STRETCHER DRIER OPERATOR HPV types 16, 18, 31, 33, 35, 39, 45, 51, 52, 56, 58, 59, 66 and 68 DNA were undetectable or below the pre-set threshold. Methodology: Suzie Lucy 4800 HPV Test Lesli Truong NP MICROBIOLOGY [facility] [address] [place] [address], from Last 3 Months or Most Recently Relevant to Health Maintenance Care Teams Purchase Request Editor Relationship Specialty Start Date End Date Rosa Valadez NP [address] [place] [address] PCP - General 01/05/22
--- OUTSIDE RECORDS SUMMARY | 2024-05-10 13:13 | XMS_ITS | Encounter Summary ---
Author Organization [facility] Address [address] [place] [address] Care Team Providers Care Air Brake Mechanic Name Role Phone No Ref-Primary, Physician Primary Care Provider Reason for Referral * Diagnostic Imaging Ultrasound (Routine) - Pending Review Specialty Diagnoses / Procedures Referred By Contac t Referred To Contact Radiology. Diagnoses related condition, antepartum Procedures [facility] US Comprehensive Single Rivka Valdovinos APRN [address] [address] Phone: tel: fax: Referral ID Status Reason Start Date Expiration Date V isits Requested Visits Authorized [id number] Pending Review 02/20/2024 02/19/2025 1 1 Reason for Visit * Diagnostic Imaging Ultrasound (Routine) - Pending Review Specialty Diagnoses / Procedures [facility] Referred To Contact Radiology. Diagnoses related condition, antepartum Procedures [facility] US Comprehensive [facility] Rivka Valdovinos APRN [facility] [address] [place] [address] Phone: tel: fax: Referral ID Status Reason Start Date Expiration Date V isits Requested Visits Authorized [id number] Pending Review 02/20/2024 02/19/2025 1 1 Encounter Details Date Type Department Care Team (Latest Contact Info) Description 03/04/2024 8:45 AM CDT - 03/04/2024 11:59 PM CDT Hospital Encounter [facility] [place] [address] [place] [address] Deion Mercedes MD [address] [facility] [address] [place] [address] related condition, antepartum Discharge Disposition: Home or [...] on file Legal Sex Female 3:14 AM ENERGY RISK MANAGEMENT ANALYST Gender Identity Not on file Sexual Orientation Not on file 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 90 capsule 3 07/11/2012 ibuprofen (ADVIL/MOTRIN) 400 MG tabletIndications : (spontaneous vaginal delivery) Take 1-2 tablets (400-800 mg) by mouth every 6 hours as needed for other (cramping) 60 tablet 02/09/2017 MV-Min-Fe Fum-FA-DHA ( 1 PO) senna-docusate (SENOKOT-S;AKILAH LACE) 8.6-50 MG per tabletIndications : (spontaneous vaginal delivery) Take 1-2 tablets by mouth 2 times daily 60 tablet 02/09/2017 documented as of this encounter Plan of Treatment Not on file documented as of this encounter Procedures Procedure Name Priority Date/Time Associated Diagnosis Comments [facility] COMPREHENSIVE SINGLE Routine 03/04/2024 9:33 AM CDT related condition, antepartum documented in this encounter Results * [facility] US Comprehensive Single (03/04/2024 9:33 AM [...] and closed. Narrative 03/04/2024 1:29 PM CDT Comprehensive ----- Pat. Name: BROOKLYNN GOMEZ Study Date: 03/04/2024 8:54am Pat. NO: [id number] Referring MD: RIVKA VALDOVINOS Site: Distillery Worker: Hakeem Wise RDMS : 1985 Age: 38 ----- INDICATION ----- Advanced Maternal Age. METHOD ----- Transabdominal ultrasound examination. View: Sufficient ----- Elizabeth . Number of fetuses: 1 DATING ----- Date Details Gest. age RAFFI LMP 10/13/2023 20 w + 3 d 07/19/2024 Previous U/S 12/27/2023 GA, GA 10 w + 5 d 20 w + 3 d 07/19/2024 U/S 03/04/2024 based upon AC, BPD, Femur, HC 21 w + 2 d 07/13/2024 Assigned dating based on the LMP, selected on 03/04/2024 20 w + 3 d 07/19/2024 GENERAL EVALUATION ----- Cardiac activity present. FHR 151 bpm. movements: present. Presentation: cephalic Placenta: Posterior, No Previa, > 2 cm from internal os Umbilical cord: 3 vessel cord Amniotic fluid: Amount of AF: normal. MVP 4.9 cm BIOMETRY ----- BPD 48.9 mm 20w 6d Hadlock OFD 70.4 mm 21w 6d Nicolaides HC 191.7 mm 21w 3d Hadlock Cerebellum tr 22.6 mm 21w 2d Nicolaides Nuchal fold 4.8 mm AC 167.4 mm 21w 5d 84% Hadlock Femur 34.5 mm 20w 6d Hadlock Humerus 33.7 mm 21w 3d Junie Weight Calculation: EFW 416 g 88% Hadlock EFW (lb,oz) 0 lb 15 oz EFW by Hadlock ([id number]) Head / Face / Neck Biometry: Traffic Control Flagger 5.5 mm CM 2.8 mm Nasal bone 7.2 mm ANATOMY ----- The following structures appear normal: Head / Neck Cranium. Head size. Head shape. Lateral ventricles. Choroid plexus. Midline falx. Cavum septi pellucidi. Cerebellum. Cisterna magna. Parenchyma. Thalami. Vermis. Neck. Nuchal fold. Face Lips. Profile. Nose. Maxilla. Mandible. Orbits. Lens. Heart / Thorax 4-chamber view. RVOT view. LVOT view. 3-vessel view. 9-vjjunj-pjgwssd view. Situs. Aortic arch view. Bicaval view. Ductal arch view. Superior vena cava. Inferior vena cava. Cardiac position. Cardiac size. Cardiac rhythm. Right lung. Left lung. Diaphragm. Abdomen Abdom. wall. Cord insertion. Stomach. Kidneys. Bladder. Liver. Bowel. Genitals. Spine Cervical spine. Thoracic spine. Lumbar spine. Sacral spine. Extremities / Skeleton Arms. Right arm. Right hand. Left arm. Left hand. Legs. Right leg. Right foot. Left leg. Left foot. sex: female. MATERNAL STRUCTURES ----- Cervix Visualized Appearance: Appears Closed Approach - Transabdominal: Cervical length 42.6 mm Right Ovary Visualized Left [...] GOMEZ Study Date: 03/04/2024 8:54am Pat. NO: [id number] Referring MD: RIVKA VALDOVINOS Site: Distillery Worker: Hakeem Wise RDMS : 1985 Age: 38 ----- INDICATION ----- Advanced Maternal Age. METHOD ----- Transabdominal ultrasound examination. View: Sufficient ----- Elizabeth . Number of fetuses: 1 DATING ----- DateDetailsGest. age RAFFI LMP w + 3 d 07/19/2024 Previous U/S 12/27/2023 GA, GA10 w + 5 d20 w + 3 d 07/19/2024 U/S 4based upon AC, BPD, Femur, HC21 w + [...] EFW (lb,oz) 0 lb 15oz EFW by Hadlock([id number]) Head / Face / Neck Biometry: Traffic Control Flagger 5.5mm CM 2.8mm Nasal bone 7.2mm ANATOMY ----- The following structures appear normal: Head / Neck Cranium. Head size. Head shape.Lateral ventricles. Choroid plexus. Midline falx. Cavum septi pellucidi.Cerebellum. Cisterna magna. Parenchyma. Thalami. Vermis. Neck. Nuchal fold. Face Lips. Profile. Nose. Maxilla.Mandible. Orbits. Lens. Heart / Thorax 4-chamber view. RVOT view. LVOT view.3-vessel view. 5-tswxbg-vrkptje view. Situs. Aortic arch view. Bicavalview. Ductal [...] imaging the cervix appeared long and closed. us Rivka Valdovinos APRN, CNM IMG MFM US ORDERABLES E dited Result - Final documented in this encounter Visit Diagnoses Diagnosis related condition, antepartum documented in this encounter Care Teams Air Brake Mechanic Relationship Specialty Start Date End Date No Ref-Primary, Physician PCP - General 02/20/24 documented as of this encounter
--- OUTSIDE RECORDS SUMMARY | 2024-05-10 13:13 | XMS_ITS | Encounter Summary ---
Author Organization [facility] Address [facility] [place] [address] Care Team Providers Care Grain Elevator Man Name Role Phone No Ref-Primary, Physician Primary Care Provider Reason for Referral * Diagnostic Imaging Ultrasound (Routine) - Pending Review Specialty Diagnoses / Procedures Referred By Contac t Referred To Contact Radiology. Diagnoses related condition, antepartum Procedures [facility] US Comprehensive Single Rivka Valdovinos APRN [facility] [address] [place] [address] Phone: tel: fax: Referral ID Status Reason Start Date Expiration Date V isits Requested Visits Authorized [id number] Pending Review 02/20/2024 02/19/2025 1 1 * Consultation (Routine: Next available opening) - Pending Review Specialty Diagnoses / Procedures Referred By Contac t Referred To Contact Diagnoses related condition, antepartum Rivka Valdovinos APRN [facility] [address] [place] [address] Phone: tel: fax: [facility] [place] [address] [place] [address] Phone: tel: fax: Referral ID Status Reason Start Date Expiration Date V isits Requested Visits Authorized [id number] Pending Review 02/20/2024 02/19/2025 1 1 Question Answer Preferred Location: [facility] [place] RAFFI 07/19/2024 Ultrasound Comprehensive US (>than 18 weeks GA) US PROC NONE MFM Issue Advanced Maternal Age *MUST request Genetic Counseling MF MD Consultation (unrelated to Ultrasound findings): No Inflammatory Bowel Disease Clinic: Joint MFM and GI Consultation: No Chronic Kidney Disease: Joint MFM and Nephrology Consultation No Cardio-Obstetrics: Joint MFM and Cardiology Consultation No Genetic Counseling Consultation: No fax [facility] Rivka Valdovinos [phone] Comments AMA Encounter Details Date Type Department Care Team (Latest Contact Info) Description 02/20/2024 Transcribe Orders [facility] [place] [address] [place] [address] Rivka Valdovinos APRN CNM [facility] [address] [place] [address] related condition, antepartum (Primary Dx) Social History Tobacco Use Types Packs/Day Years Used Date Smoking Tobacco: Never Smokeless Tobacco: Never Alcohol Use Standard Drinks/Week Comments Yes 0 (1 standard drink = 0.6 oz pur e alcohol) weekends-social Adolescent Education Answer Date Record ed Getting School Help Needed Not on file 12/16 Comments No Sex and Gender Information Value Date Recorded Sex Assigned at Not on file Legal Sex Female 3:14 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 NO: [id number] Referring MD: RIVKA VALDOVINOS Site: Pivot End Polisher: Hakeem Wise RDMS : 1985 Age: 38 [...] 0 lb 15 oz EFW by Hadlock ([id number]) Head / Face / Neck Biometry: Retail Worker 5.5 mm CM 2.8 mm Nasal bone 7.2 mm ANATOMY ----- The following structures appear normal: Head / Neck Cranium. Head size. Head shape. Lateral ventricles. Choroid plexus. Midline falx. Cavum septi pellucidi. Cerebellum. Cisterna magna. Parenchyma. Thalami. Vermis. Neck. Nuchal fold. Face Lips. Profile. Nose. Maxilla. Mandible. Orbits. Lens. Heart / Thorax 4-chamber view. RVOT view. LVOT view. 3-vessel view. 8-wogxfr-xouxpqq view. Situs. Aortic arch view. Bicaval view. [...] GOMEZ Study Date: 03/04/2024 8:54am Pat. NO: [id number] Referring MD: RIVKA VALDOVINOS Site: Pivot End Polisher: Hakeem Wise RDMS : 1985 Age: 38 [...] EFW (lb,oz) 0 lb 15oz EFW by Gustavo([id number]) Head / Face / Neck Biometry: Retail Worker 5.5mm CM 2.8mm Nasal bone 7.2mm ANATOMY ----- The following structures appear normal: Head / Neck Cranium. Head size. Head shape.Lateral ventricles. Choroid plexus. Midline falx. Cavum septi pellucidi.Cerebellum. Cisterna magna. Parenchyma. Thalami. Vermis. Neck. Nuchal fold. Face Lips. Profile. Nose. Maxilla.Mandible. Orbits. Lens. Heart / Thorax 4-chamber view. RVOT view. LVOT view.3-vessel view. 2-vbakvb-eyercpr view. Situs. Aortic arch view. Bicavalview. Ductal [...] and closed. us Rivka Valdovinos APRN, CNM [facility] MFM US ORDERABLES E dited Result - Final documented in this encounter Visit Diagnoses Diagnosis related condition, antepartum- Primary related condition, antepartum documented in this encounter Care Teams Grain Elevator Man Relationship Specialty Start Date End Date No Ref-Primary, Physician PCP - General 02/20/24 documented as of this encounter
--- OUTSIDE RECORDS SUMMARY | 2024-05-10 13:13 | XMS_ITS | Encounter Summary ---
Author Organization [facility] Address [address] [place] [address] Care Team Providers Care Flat Lock Machine Operator Name Role Phone Shanon Rushing MD Primary Care Provider [phone] Mandy TrinidadC Primary Care Pr ovider Timothy Webb MD Primary Care Provider [phone] No Ref-Primary, Physician Primary Care Provider Reason for Visit * Reason Onset Date Comments MyChart Communication 10/29/2012 Encounter Details Date Type Department Care Team (Latest Contact Info) Description 10/29/2012 MyC Medical Advice [address] [address] Shanon Rushing MD [address] [place] [address] MyChart Communication () Social History Tobacco Use Types Packs/Day Years Used Date Smoking Tobacco: Never Smokeless Tobacco: Never Alcohol Use Standard Drinks/Week Comments Yes 0 (1 standard drink = 0.6 oz pur e alcohol) weekends-social Comments Unknown Sex and Gender Information Value Date Recorded Sex Assigned at Not on file Legal Sex Female 3:14 AM COLLECTION SYSTEMS ADMINISTRATOR Gender Identity Not on file Sexual Orientation Not on file documented as of this encounter Plan of Treatment Not on file documented as of this encounter Visit Diagnoses Not on filedocumented in this encounter Care Teams Flat Lock Machine Operator Relationship Specialty Start Date End Date Shanon Rushing MD PCP - General Family Practice 07/11/12 09/24/13 Mandy Trinidad PA-C [address] [place], [place] [id number] PCP - General Physician Data Processing Supervisor 09/25/13 01/15/17 [place] [address] [place], [place] [id number] PCP - General 01/16/17 01/16/17 No Ref-Primary, Physician PCP - General 02/20/24 documented as of this encounter
--- OUTSIDE RECORDS SUMMARY | 2024-05-10 13:13 | XMS_ITS | Encounter Summary ---
Author Organization [facility] Address [address] [place] [address] Care Team Providers Care Washer Engineer Helper Name Role Phone Mandy Trinidad PA-C Primary Care Pr ovider Timothy Webb MD Primary Care Provider No Ref-Primary, Physician Primary Care Provider Reason for Visit * Reason Onset Date Comments MyChart Communication 02/11/2015 Encounter Details Date Type Department Care Team (Late st Contact Info) Description 02/11/2015 MyC Medical Advice [facility] [address] [place] [address] Amy Rowell, DO [address] [address] MyChart Communication Social History Tobacco Use Types Packs/Day Years Used Date Smoking Tobacco: Never Smokeless Tobacco: Never Alcohol Use Standard Drinks/Week Comments Yes 0 (1 standard drink = 0.6 oz pur e alcohol) weekends-social Comments No Sex and Gender Information Value Date Recorded Sex Assigned at Not on file Legal Sex Female 3:14 AM CASTING AGENT Gender Identity Not on file Sexual Orientation Not on file 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 Melany Cohen RN documented in this encounter Plan of Treatment Not on file documented as of this encounter Visit Diagnoses Diagnosis Cervicitis- Primary Cervicitis and endocervicitis documented in this encounter Care Teams Washer Engineer Helper Relationship Specialty Start Date End Date Mandy Trinidad PA-C [address] [place] [address] PCP - General Physician Pre Sales Systems Engineer 09/25/13 01/15/17 [place] [address] [place] [address] PCP - General 01/16/17 01/16/17 No Ref-Primary, Physician PCP - General 02/20/24 documented as of this encounter
--- OUTSIDE RECORDS SUMMARY | 2024-05-10 13:13 | XMS_ITS | Encounter Summary ---
Author Organization [place] Address [address] [place] [address]. [place] [address] Care Team Providers Care Commercial Account Manager Name Role Phone Mandy Trinidad PA-C Primary Care Pr ovider Timothy Webb MD Primary Care Provider No Ref-Primary, Physician Primary Care Provider Reason for Visit * Reason Onset Date Comments MyChart Communication 01/19/2015 Encounter Details Date Type Department Care Team (Latest Contact Info) Description 01/19/2015 [facility] [place] [facility] [id number] [place] [phone] Mandy Trinidad PA-C [id number] [place] [address] MyChart Communication Social History Tobacco Use Types Packs/Day Years Used Date Smoking Tobacco: Never Smokeless Tobacco: Never Alcohol Use Standard Drinks/Week Comments Yes 0 (1 standard drink = 0.6 oz pur e alcohol) weekends-social Comments No Sex and Gender Information Value Date Recorded Sex Assigned at Not on file Legal Sex Female 3:14 AM UR COORDINATOR Gender Identity Not on file Sexual Orientation [...] Primary documented in this encounter Care Teams Commercial Account Manager Relationship Specialty Start Date End Date Mandy Trinidad PA-C [address] [place] [address] PCP - General Physician Research And Development Chemist 09/25/13 01/15/17 [place] [address] [place] [address] PCP - General 01/16/17 01/16/17 No Ref-Primary, Physician PCP - General 02/20/24 documented as of this encounter
--- OUTSIDE RECORDS SUMMARY | 2024-05-10 13:13 | XMS_ITS | Encounter Summary ---
Author Organization [place] Address [address] [facility] [place] [address] Care Team Providers Care Corporate Sales Representative Name Role Phone No Ref-Primary, Physician Primary Care Provider Reason for Visit * Reason Comments Ultrasound L2-AMA Encounter Details Date Type Department Care Team (Late st Contact Info) Description 03/04/2024 9:15 AM CDT Office Visit [facility] [place] [address] [facility] [address] [place] [address] Deion Mercedes MD [address] [place] [address] [address] [place] [address] Multigravida of advanced maternal age [...] on file Legal Sex Female 3:14 AM MICROARRAY OPERATIONS VICE PRESIDENT Gender Identity Not on file Sexual Orientation [...] in this encounter Nursing Notes * Kellen Medley RN - 03/04/2024 9:15 AM CDT Patient reports positive movement, denies contractions, leaking of fluid, or bleeding. SBAR given to NYDIA VASQUEZ, see their note in Epic. documented in this encounter Plan of Treatment Not on file documented as of this encounter Visit Diagnoses Diagnosis Multigravida of advanced maternal age in second trimester- Primary documented in this encounter Care Teams Corporate Sales Representative Relationship Specialty Start Date End Date No Ref-Primary, Physician PCP - General 02/20/24 documented as of this encounter
--- OUTSIDE RECORDS SUMMARY | 2024-05-10 13:13 | XMS_ITS | Encounter Summary ---
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
--- OUTSIDE RECORDS SUMMARY | 2024-05-10 13:13 | XMS_ITS | Encounter Summary ---
Author Organization [place] Address [facility] [place] [address] Care Team Providers Care Cullet Trucker Name Role Phone Mandy Triniadd PA-C Primary Care Pr ovider Timothy Webb MD Primary Care Provider No Ref-Primary, Physician Primary Care Provider Encounter Details Date Type Department Care Team (Late st Contact Info) Description 10/29/2013 [facility] Medical Advice [facility] [id number] [place] [phone] Mandy Trinidad PA-C [id number] [place] [address] Social History Tobacco Use Types Packs/Day Years Used Date Smoking Tobacco: Never Smokeless Tobacco: Never Alcohol Use Standard Drinks/Week Comments Yes 0 (1 standard drink = 0.6 oz pur e alcohol) weekends-social Comments No Sex and Gender Information Value Date Recorded Sex Assigned at Not on file Legal Sex Female 3:14 AM 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 NURSE Gender Identity Not on file Sexual Orientation Not on file 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
--- OUTSIDE RECORDS SUMMARY | 2024-05-10 13:13 | XMS_ITS | Clinical Summary ---
Author Organization [place] Address [address] [place] [address] Care Team Providers Care Casket Upholsterer Name Role Phone No Ref-Primary, Physician Primary Care Provider Allergies No known active allergies Medications fish oil-omega-3 fatty acids (OMEGA 3) 1000 MG capsule Take 1 capsule by mouth 2 times daily. 90 capsule 3 07/11/2012 Active MV-Min-Fe Fum-FA-DHA ( 1 PO) Acti ve ibuprofen (ADVIL/MOTRIN) 400 MG tabletIndicatio ns: (spontaneous vaginal delivery) Take 1-2 tablets (400-800 mg) by mouth every 6 hours as needed for other (cramping) 60 tablet 02/09/2017 Active senna-docusate (SENOKOT-S;ANDIE COLACE) 8.6-50 MG per tabletIndicatio ns: (spontaneous vaginal delivery) Take 1-2 tablets by mouth 2 times daily 60 tablet 02/09/2017 Active Active Problems Problem Noted Date Diagnosed Date 02/07/2017 Indication for care in labor or delivery 017 Encounter for triage in patient 017 CARDIOVASCULAR SCREENING; LDL GOAL LESS THAN 160 12/17/2014 Papanicolaou smear of cervix with low grade squamous intraepithelial lesion (LGSIL) (aka LSIL) 11/09/2014 Overview (02/18/2015): 11/10/14: LSIL. Plan colp.02/10/15: [place] - WNL. Plan cotest pap & HPV in 1 year Tracking started. Contraception management 10/11/2012 Estimated Date of Delivery Comme nts Yes 07/19/2024 Based on last me nstrual period of 10/13/2023 Resolved Problems Problem Noted Date Diagnosed Date Resolved Date Hyperlipidemia LDL goal <160 07/11/2012 12/17/2014 Insomnia 07/11/2012 12/17/2014 Encounters Date Type Department Care Team Description 03/04/2024 9:15 AM CDT Office Visit [facility] Maternal Medicine [facility] [address] [place] [phone] Deion Mercedes MD Multigravida of advanced maternal age in second trimester (Primary Dx) 03/04/2024 8:45 AM CDT - 03/04/2024 11:59 PM CDT Hospital Encounter [facility] [place] [address] [place] [phone] Deion Mercedes MD related condition, antepartum Discharge Disposition: Home or Self Care 03/04/2024 Travel 02/25/2024 PRE VISIT [facility] [address] [facility] [address] [place] [phone] Kellen Medley RN Ultrasound (L2-AMA) 02/20/2024 Medical Correspondence [facility] Health Information Management [address] [facility] [address] [place] [address] Scan, Non-Provider 02/20/2024 Transcribe Orders [facility] Medicine [facility] [address] [facility] [address] [place] [phone] Rivka Valdovinos APRN CNM related condition, antepartum (Primary Dx) from Last 3 Months Immunizations Name Administration Dates Next Due DTAP (<7y) 11/19/1990,06/29/1986,03/19/1986 ,01/21/1986 HPV 03/08/2011, 0,03/20/2008,07/12/2007, HepB 05/30/2004,01/25/2004,12/02/2003 Influenza (IIV3) PF 01/21/2012 MMR 02/05/1998,06/29/1989 Mantoux Tuberculin Skin Test 03/08/2011,04/26/20 10 Meningococcal (Menomune ) 12/02/2003 Poliovirus, inactivated (IPV) 11/19/1990, 987,03/19/1986,01/21/1986 TD,PF [...] on file 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 Gender Identity Not on file Sexual Orientation Not on file 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 Name: JOSE GOMEZ Study Date: 03/04/2024 8:54am Pat. NO: [id number] Referring MD: RIVKA VALDOVINOS Site: Nitroglycerin Neutralizer: Hakeem Wise RDMS : 1985 Age: 38 [...] 0 lb 15 oz EFW by Hadlock ([id number]) Head / Face / Neck Biometry: Deputy Chief Sheriff 5.5 mm CM 2.8 mm Nasal bone 7.2 mm ANATOMY ----- The following structures appear normal: Head / Neck Cranium. Head size. Head shape. Lateral ventricles. Choroid plexus. Midline falx. Cavum septi pellucidi. Cerebellum. Cisterna magna. Parenchyma. Thalami. Vermis. Neck. Nuchal fold. Face Lips. Profile. Nose. Maxilla. Mandible. Orbits. Lens. Heart / Thorax 4-chamber view. RVOT view. LVOT view. 3-vessel view. 2-eoitdk-xkujmte view. Situs. Aortic arch view. Bicaval view. [...] GOMEZ Study Date: 03/04/2024 8:54am Pat. NO: [id number] Referring MD: RIVKA VALDOVINOS Site: Nitroglycerin Neutralizer: Hakeem Wise RDMS : 1985 Age: 38 [...] EFW (lb,oz) 0 lb 15oz EFW by Hadlock([id number]) Head / Face / Neck Biometry: Deputy Chief Sheriff 5.5mm CM 2.8mm Nasal bone 7.2mm ANATOMY ----- The following structures appear normal: Head / Neck Cranium. Head size. Head shape.Lateral ventricles. Choroid plexus. Midline falx. Cavum septi pellucidi.Cerebellum. Cisterna magna. Parenchyma. Thalami. Vermis. Neck. Nuchal fold. Face Lips. Profile. Nose. Maxilla.Mandible. Orbits. Lens. Heart / Thorax 4-chamber view. RVOT view. LVOT view.3-vessel view. 6-kiildt-pwaafus view. Situs. Aortic arch view. Bicavalview. Ductal [...] closed. us Rivka Valdovinos APRN, CNM IMG [facility] US ORDERABLES E dited Result - Final * Group B strep PCR (01/08/2017) Pathologist [facility] Group B Strep PCR negative Patient Reported LAB - MICRO GENERAL ORDERABLES Final Result * HIV Antigen Antibody Combo (07/03/2016) Pathologist [facility] HIV Antigen Antibody Combo negative Blood specimen (specimen) us Patient Reported LAB - BLOOD ORDERABLES Final Re sult * Comprehensive metabolic panel (11/10/2014 8:46 AM CDT) [facility] Sodium 138 133 - 144 mmol/L [facility] Potassium 3.6 3.4 - 5.3 mmol/L [facility] Chloride 104 94 - 109 mmol/L [facility] Carbon Dioxide 27 20 - 32 mmol/L [facility] Anion Gap 7 3 - 14 mmol/L [facility] Glucose 78 70 - 99 mg/dL [facility] Urea Nitrogen 15 7 - 30 mg/dL [facility] Creatinine 0.85 0.52 - 1.04 mg/dL [facility] GFR Estimate 79 >60 mL/min/1. 7m2 [facility] Comment:Non GFR Calc GFR Estimate If Black >90 GFR Calc >60 mL/min/1. 7m2 [facility] Calcium 8.6 8.5 - 10.1 mg/dL [facility] Bilirubin Total 0.5 0.2 - 1.3 mg/dL [facility] Albumin 3.5 3.4 - 5.0 g/dL [facility] Protein Total 6.9 6.8 - 8.8 g/dL [facility] Alkaline Phosphatase 49 40 - 150 U/L [facility] ALT 24 0 - 50 U/L [facility] AST 10 0 - 45 U/L [facility] Blood specimen (specimen) 11/10/2014 8:46 AM CDT 11/10/2014 8:47 AM CDT us Jose Trinidad PA-C LAB - BLOOD FAWN FREIRE Final Result [facility] [address] [place] [address] * (ABNORMAL) PAP imaged thin layer screen (11/10/2014 12:00 AM CDT) PAP LSIL(A) JEREMY Lee Report Patient Name: JOSE CHENEY MR#: [id number] Specimen #: [id number] Collected: 11/10/2014 Received: 11/10/2014 Reported: 11/13/2014 06:55 Ordering Phy(s): JOSE TRINIDAD SPECIMEN/STAIN PROCESS: Pap imaged thin layer prep screening (Surepath, FocalPoint with guided screening) Pap-Cyto x 1 SOURCE: Cervical, endocervical Pap imaged thin layer prep screening (Surepath, FocalPoint with guided screening) SPECIMEN ADEQUACY: Satisfactory for evaluation. -Transformation zone component present. CYTOLOGIC INTERPRETATION: Epithelial Cell Abnormality: Squamous Cell: Low-grade squamous intraepithelial lesion (LSIL) encompassing: HPV/ mild dysplasia/ ROSEANNE 1. Electronically signed out by: Ranjeet Andersen M.D. Processed and screened at [facility], [facility] CLINICAL HISTORY: LMP: 10/27/2014 Previous normal pap Date of Last Pap: 09/25/2013, Papanicolaou Test Limitations: Cervical cytology is a screening test with limited sensitivity; regular screening is critical for cancer prevention; Pap tests are primarily effective for the diagnosis/preventi on of squamous cell carcinoma, not adenocarcinomas or other cancers. TESTING LAB LOCATION: [address] [address] COLLECTION SITE: Client: [facility] Location: LVFP (R) COPATH Cytologic material (specimen) 11/10/2014 11/10/2014 2:07 PM CDT Jose Trinidad PA-C LAB - OPTIME CLI NICAL SPECIMEN Final Result COPATH from Last 3 Months or Most Recently Relevant to Health Maintenance Insurance BCBS OUT OF STATE BCBS OUT OF STATE Care Teams Casket Upholsterer Relationship Specialty Start Date End Date No Ref-Primary, Physician PCP - General 02/20/24
--- OUTSIDE RECORDS SUMMARY | 2024-05-10 13:13 | XMS_ITS | Referral Summary ---
Author Organization [place] Address [address] [place] [address] Care Team Providers Care Research Professor Of Biostatistics Name Role Phone No Ref-Primary, Physician Primary Care Provider Encounters Date Type Department Care Team Description 03/04/2024 Travel 03/04/2024 9:15 AM CDT Office Visit [facility] Maternal Medicine [facility] [address] [facility] [address] [place] [phone] Deion Mercedes MD Multigravida of advanced maternal age in second trimester (Primary Dx) 03/04/2024 8:45 AM CDT - 03/04/2024 11:59 PM CDT Hospital Encounter [facility] Medicine [facility] [address] [place] [phone] Deion Mercedes MD related condition, antepartum Discharge Disposition: Home or Self Care 02/25/2024 PRE VISIT [facility]aternal Medicine [facility] [address] [facility] [address] [place] [phone] Kellen Medley RN Ultrasound (L2-AMA) 02/20/2024 Medical Correspondence [facility] Information Management [address] [place] [address] [address] [place] [address] Scan, Non-Provider 02/20/2024 Transcribe Orders [facility] Maternal Medicine [facility] [address] [facility] [address] [place] [address] Rivka Valdovinos APRN CNM related condition, antepartum (Primary Dx) from Last 3 Months Allergies No known active allergies Medications fish [...] 11/09/2014 Overview (02/18/2015): 11/10/14: LSIL. Plan colp.02/10/15: [place] - WNL. 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 NO: [id number] Referring MD: RIVKA VALDOVINOS Site: Hostel Manager: Hakeem Wise RDMS : 1985 Age: 38 [...] 0 lb 15 oz EFW by Hadlock ([id number]) Head / Face / Neck Biometry: Therapeutic Activities Services Worker 5.5 mm CM 2.8 mm Nasal bone 7.2 mm ANATOMY ----- The following structures appear normal: Head / Neck Cranium. Head size. Head shape. Lateral ventricles. Choroid plexus. Midline falx. Cavum septi pellucidi. Cerebellum. Cisterna magna. Parenchyma. Thalami. Vermis. Neck. Nuchal fold. Face Lips. Profile. Nose. Maxilla. Mandible. Orbits. Lens. Heart / Thorax 4-chamber view. RVOT view. LVOT view. 3-vessel view. 2-yyoxna-weiyevz view. Situs. Aortic arch view. Bicaval view. [...] GOMEZ Study Date: 03/04/2024 8:54am Pat. NO: [id number] Referring MD: RIVKA VALDOVINOS Site: Hostel Manager: Hakeem Wise RDMS : 1985 Age: 38 [...] EFW (lb,oz) 0 lb 15oz EFW by Aguedalock([id number]) Head / Face / Neck Biometry: Therapeutic Activities Services Worker 5.5mm CM 2.8mm Nasal bone 7.2mm ANATOMY ----- The following structures appear normal: Head / Neck Cranium. Head size. Head shape.Lateral ventricles. Choroid plexus. Midline falx. Cavum septi pellucidi.Cerebellum. Cisterna magna. Parenchyma. Thalami. Vermis. Neck. Nuchal fold. Face Lips. Profile. Nose. Maxilla.Mandible. Orbits. Lens. Heart / Thorax 4-chamber view. RVOT view. LVOT view.3-vessel view. 6-mdrbsd-thlzjql view. Situs. Aortic arch view. Bicavalview. Ductal [...] * Group B strep PCR (01/08/2017) Pathologist [facility] Group B Strep PCR negative us Patient Reported LAB - MICRO GENERAL ORDERABLES Final Result * HIV Antigen Antibody Combo (07/03/2016) Pathologist [facility] HIV Antigen Antibody Combo negative Blood specimen (specimen) us Patient Reported LAB - BLOOD ORDERABLES Final Re sult * Comprehensive metabolic panel (11/10/2014 8:46 AM CDT) [facility] Sodium 138 133 - 144 mmol/L [facility] Potassium 3.6 3.4 - 5.3 mmol/L [facility] Chloride 104 94 - 109 mmol/L [facility] Carbon Dioxide 27 20 - 32 mmol/L [facility] Anion Gap 7 3 - 14 mmol/L [facility] Glucose 78 70 - 99 mg/dL [facility] Urea Nitrogen 15 7 - 30 mg/dL [facility] Creatinine 0.85 0.52 - 1.04 mg/dL [facility] GFR Estimate 79 >60 mL/min/1. 7m2 [facility] Comment:Non GFR Calc GFR Estimate If Black >90 GFR Calc >60 mL/min/1. 7m2 [facility] Calcium 8.6 8.5 - 10.1 mg/dL [facility] Bilirubin Total 0.5 0.2 - 1.3 mg/dL [facility] Albumin 3.5 3.4 - 5.0 g/dL [facility] Protein Total 6.9 6.8 - 8.8 g/dL [facility] Alkaline Phosphatase 49 40 - 150 U/L [facility] ALT 24 0 - 50 U/L [facility] AST 10 0 - 45 U/L [facility] Blood specimen (specimen) 11/10/2014 8:46 AM CDT 11/10/2014 8:47 AM CDT us Jose Trinidad PA-C LAB - BLOOD FAWN FREIRE Final Result [facility] [address] [place] [address] * (ABNORMAL) PAP imaged thin layer screen (11/10/2014 12:00 AM CDT) PAP LSIL(A) COPATH Jesus Report Patient Name: JOSE CHENEY MR#: [id number] Specimen #: [id number] Collected: 11/10/2014 Received: 11/10/2014 Reported: 11/13/2014 06:55 [...] Ranjeet Andersen M.D. Processed and screened at [facility], [facility] CLINICAL HISTORY: LMP: 10/27/2014 Previous normal pap Date of Last Pap: 09/25/2013, Papanicolaou Test Limitations: Cervical cytology is a screening test with limited sensitivity; regular screening is critical for cancer prevention; Pap tests are primarily effective for the diagnosis/preventi on of squamous cell carcinoma, not adenocarcinomas or other cancers. TESTING LAB LOCATION: [address] [address] COLLECTION SITE: Client: [facility] Location: LVFP (R) COPATH Cytologic material (specimen) 11/10/2014 11/10/2014 2:07 PM CDT Jose Trinidad PA-C LAB - OPTIME CLI NICAL SPECIMEN Final Result COPATH from Last 3 Months or Most Recently Relevant to Health Maintenance Insurance BCBS OUT OF STATE BCBS OUT OF STATE Care Teams Research Professor Of Biostatistics Relationship Specialty Start Date End Date No Ref-Primary, Physician PCP - General 02/20/24
--- OUTSIDE RECORDS SUMMARY | 2024-05-10 13:13 | XMS_ITS | Encounter Summary ---
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
--- OUTSIDE RECORDS SUMMARY | 2024-05-10 13:13 | XMS_ITS | Encounter Summary ---
Author Organization [facility] Address [address] [place] [address] Care Team Providers Care Cloth Shrinking Machine Operator Helper Name Role Phone Shanon Rushing MD Primary Care Provider [phone] Mandy TrinidadC Primary Care Pr ovider Timothy Webb MD Primary Care Provider No Ref-Primary, Physician Primary Care Provider Reason for Visit * Reason Onset Date Comments MyChart Communication 07/29/2012 high norberto sterol Encounter Details Date Type Department Care Team (Latest Contact Info) Description 07/29/2012 MyC Medical Advice [address] [address] Shanon Rushing MD [address] [place] [address] MyChart Communication (high cholesterol) Social History Tobacco Use Types Packs/Day Years Used Date Smoking Tobacco: Never Smokeless Tobacco: Never Alcohol Use Standard Drinks/Week Comments Yes 0 (1 standard drink = 0.6 oz pur e alcohol) weekends-social Comments Unknown Sex and Gender Information Value Date Recorded Sex Assigned at Not on file Legal Sex Female 3:14 AM 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 Prerna Chung Scientific Manager RDOUS MATERIALS WASTE TECHNICIAN documented in this encounter Plan of Treatment Not on file documented as of this encounter Visit Diagnoses Not on filedocumented in this encounter Care Teams Cloth Shrinking Machine Operator Helper Relationship Specialty Start Date End Date Shanon Rushing MD PCP - General Family Practice 07/11/12 09/24/13 Mandy Trinidad PA-C [address] [place] [address] PCP - General Physician [employer] 09/25/13 01/15/17 [place] [address] [place] [address] PCP - General 01/16/17 01/16/17 No Ref-Primary, Physician PCP - General 02/20/24 documented as of this encounter
--- OUTSIDE RECORDS SUMMARY | 2024-05-10 13:13 | XMS_ITS | Encounter Summary ---
Author Organization [facility] Address [address] [place] [address] Care Team Providers Care Emergency Response Officer Name Role Phone Shanon Rushing MD Primary Care Provider [phone] Mandy TrinidadC Primary Care Pr ovider Timothy Webb MD Primary Care Provider No Ref-Primary, Physician Primary Care Provider Encounter Details Date Type Department Care Team (Late st Contact Info) Description 07/29/2012 [facility] [facility] [address] [place] [address] Shanon Rushing MD [address] [place] [address] Social History Tobacco Use Types Packs/Day Years Used Date Smoking Tobacco: Never Smokeless Tobacco: Never Alcohol Use Standard Drinks/Week Comments Yes 0 (1 standard drink = 0.6 oz pur e alcohol) weekends-social Comments Unknown Sex and Gender Information Value Date Recorded Sex Assigned at Not on file Legal Sex Female 3:14 AM 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 Gender Identity Not on file Sexual Orientation Not on file documented as of this encounter Plan of Treatment Not on file documented as of this encounter Visit Diagnoses Not on filedocumented in this encounter Care Teams Emergency Response Officer Relationship Specialty Start Date End Date Shanon Rushing MD PCP - General Family Practice 07/11/12 09/24/13 Mandy Trinidad PA-C [address] [place] [address] PCP - General Physician [employer] 09/25/13 01/15/17 [place] [address] [place] [address] PCP - General 01/16/17 01/16/17 No Ref-Primary, Physician PCP - General 02/20/24 documented as of this encounter
--- OUTSIDE RECORDS SUMMARY | 2024-05-10 13:13 | XMS_ITS | Encounter Summary ---
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
--- OUTSIDE RECORDS SUMMARY | 2024-05-10 13:13 | XMS_ITS | Patient Health Record ---
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 Name Role Phone None, No PCP Primary Care Provider Rachel Nix [phone] Allergies No Known Allergies Results Component Value Reference Range Notes TSH Reviewed date:07/23/2023 12:40:43 PM Interpretation:Normal Performing Lab:[facility] [address], [employer]DhelUK[address] Juaquin Morgan Notes/Report: TSH 0.81 Reference Range > or = 20 Years 0.40-4.50 Ranges First trimester 0.26-2.66 Second trimester 0.55-2.73 Third trimester 0.43-2.91 HEMOGLOBIN A1c Reviewed date:07/23/2023 12:40:43 PM Interpretation:Normal Performing Lab:JAIDA [facility] [address], [employer]KdvyJA[address] Juaquin Morgan Notes/Report: HEMOGLOBIN A1c 5.2 <5.7 [...] diagnosis of diabetes in children. According to [place] Diabetes Association (ADA) guidelines, hemoglobin A1c <7.0% represents optimal control in non- diabetic patients. Different metrics may apply to specific patient populations. Standards of Medical Care in Diabetes(ADA). HbA1c performed on [employer] platform. CBC (INCLUDES DIFF/PLT) Reviewed date:07/23/2023 12:40:43 PM Interpretation:Normal Performing Lab:JAIDA, [facility] CampusWdjcSX[address] Juaquin Morgan Notes/Report: WHITE BLOOD CELL COUNT 8.5 3.8-10.8 Thousand/ uL RED BLOOD CELL COUNT 4.38 3.80-5.10 Million/uL HEMOGLOBIN 13.3 11.7-15.5 g/dL HEMATOCRIT 39.9 35.0-45.0 % MCV 91.1 80.0-100.0 fL MCH 30.4 27.0-33.0 pg MCHC 33.3 32.0-36.0 g/dL RDW 11.8 11.0-15.0 % PLATELET COUNT 294 140-400 Thousand/uL MPV 10.9 7.5-12.5 fL ABSOLUTE NEUTROPHILS 4599 0107-1075 cells/uL ABSOLUTE LYMPHOCYTES 3162 850-3900 cells/uL ABSOLUTE MONOCYTES 629 200-950 cells/uL ABSOLUTE EOSINOPHILS 94 15-500 cells/uL ABSOLUTE BASOPHILS 17 0-200 cells/uL NEUTROPHILS 54.1 LYMPHOCYTES 37.2 MONOCYTES 7.4 EOSINOPHILS 1.1 BASOPHILS 0.2 COMPREHENSIVE METABOLIC PANE L (CMP) Reviewed date:07/23/2023 12:40:43 PM Interpretation:Normal Performing Lab:JAIDA [facility] G[address]tx[address] [facility], [facility] CampusVzfkYX[address] Juaquin Morgan Notes/Report: GLUCOSE 80 65-99 mg/dL [...] ANTIBODIES Reviewed date:07/23/2023 12:40:43 PM Interpretation: Performing Lab:JA[facility], Alfredo DuvallRrevKU[address] Juaquin Morgan Notes/Report: THYROGLOBULIN ANTIBODIES 1 < or = 1 IU/mL THYROID PEROXIDASE ANTIBODIES 117 <9 IU/mL THINPREP TIS AND HPV mRNA E6 /E7 (30 yrs and over) Reviewed date:07/23/2023 12:40:43 PM Interpretation:Normal Performing Lab:[facility]qlxtufv[address] Adriana Caruso, XtagjzvhjeTM[address] Laci Coffey Notes/Report: CLINICAL INFORMATION: None g iven LMP: 06/21/23 PREV. PAP: 2020 PREV. BX: NONE GIVEN SOURCE: Cervix, Endocer vix STATEMENT OF ADEQUACY: Satisfactory for evaluation. Endocervical/transformat ion zone component present. INTERPRETATION/RESULT: Cytology Results: Negative for intraepithelial lesion or malignancy. COMMENT: This Pap test has been evaluated with computer assisted technology. AUTO PARTS CLERK: ILA BIRCH (ASCP) CT Screening Location: [place] [address] COMMENT EXPLANATORY NOTE: The Pap is a screening test for cervical cancer. It is not a diagnostic test and is subject to false negative and false positive results. It is most reliable when a satisfactory sample, regularly obtained, is submitted with relevant clinical findings and history, and when the Pap result is evaluated along with historic and current clinical information. HPV mRNA E6/E7 Not Detected Not Detected Methodology: Medical Center Manager-Mediated Amplification This assay detects E6/E7 viral messenger RNA (mRNA) from 14 high-risk HPV types (16,18,31,33,35,39,45,51 ,52,56,58,59,66,68). Cervical sources are required for HPV testing. If a vaginal source from a patient who has had a total hysterectomy with removal of cervix was submitted, please contact the testing laboratory for alternative testing options. For additional information, please refer to http://education.Croak.it/faq/MPM787 v1 (This link if provided for information/ educational purposes only.) Reason For Referral Reason Renetta^2.12 Diagnosis 1 Pelvic floor dysfunc tion (N81.84) Diagnosis 2 Uterine prolaps (N81 .4) Referral Organization [facility] Referring Provider First Name Rachel Referring Provider Last Name Vee Referring Provider Speciality Certified Nurse Crt Referred Provider Specialty Physical The rapist General Notes Rachel Baxter 07/19 04:40:18 PM ACCOUNT ADMINISTRATOR >Patient would like a referral to [facility] pelvic floor PT. Reason: mild cystocele and mild uterine prolapse, Diastasis recti. As many sessions as the PT determines are needed. Thanks!, Lito Sadler 07/20/2023 10:57:31 AM ACCOUNT ADMINISTRATOR > Referral uploaded and faxed to [facility]- P:[phone] F:[phone] Andrea 07/23/2023 12:18:08 PM >PT called and wanted referral sent to renetta- uploaded and faxed [phone] P:[phone], Lito Sadler 08/01/2023 09:32:57 AM >Renetta called and LVM - PT can call when she is ready Referral Priority Routine Medications Medication SIG (Take, Route, Fr equency, Duration) Notes Start Date End Date Status Probiotic Active [place]-3 Active Estradiol 0.1 MG/GM 0.5 gram Vaginal [...] W/U Status Risk Notes Problem Uterovaginal prolapse (59547387) Uterine prolaps (N81.4) Active confirmed Problem Pelvic floor dysfunction (725109951) Pelvic floor dysfunction (N81.84) Active confirmed Problem [id number] Uterus prolapse (N81.4) Active confirmed Vital Signs Blood pressure diastolic 62 mm Hg 07/19/2023 Height 68 in 07/19/2023 Blood pressure systolic 108 mm Hg 07/19/2023 Weight 161.2 lbs 07/19/2023 BMI 24.51 kg/m2 07/19/2023 Encounters Encounter Location Date Provider Diagnosis [facility] [address] [place] [address] 07/19/2023 Rachel Baxter Encounter for annual routine gynecological examination Z01.419 ; Encounter for screening for human papillomavirus (HPV) Z11.51 ; Screening for metabolic disorder Z13.228 ; Diabetes mellitus screening Z13.1 and Screening for endocrine disorder Z13.29 [facility] [address] [place] [address] 07/19/2023 Rachel Baxter Encounter for screening for malignant neoplasm of cervix Z12.4 ; Encounter for screening for diabetes mellitus Z13.1 ; Vaginal dryness N89.8 and Uterus prolapse N81.4 [facility] [address] [place] [address] 07/19/2023 Rachel Baxter [facility] [address] [facility] [address] [place], [place] [id number] 07/19/2023 Rachel Baxter Assessments Encounter Date Diagnosis (ICD Code) Assessment Notes Treatment Notes Treatment Clinical Notes Section Notes 07/19/2023 Encounter for screening for malignant [...] Date BCBS - (Client Bill) [address] [place] [address] [id number] Brooklynn Gomez Self - patient is the insured Medical (General) History Medical History History ICD Code Abnormal Pap Chicken Pox Thyroid Problem Surgical History Surgery Date(Month/Year) Tonsil 2005
== END 2024-05-07 15:08 | disposition home or self-care (01) ==
LOC: NFLDREF 05-10 13:11
PROVIDERS: Visit Provider Advanced Practice Midwife
DX: Z34.93 Encounter for supervision of normal pregnancy, unspecified, third trimester (principal); Z3A.29 29 weeks gestation of pregnancy
CPT/HCPCS: 86592

== ENCOUNTER 2024-06-02 10:25 | Outpatient (CLI) | payer BC, SELFPAY | END 2024-06-02 10:26 | disposition home or self-care (01) | LOC: NFLDREF 06-03 05:42 | PROVIDERS: Visit Provider Advanced Practice Midwife | DX: O09.523 Supervision of elderly multigravida, third trimester (principal); R76.8 Other specified abnormal immunological findings in serum; Z3A.33 33 weeks gestation of pregnancy | CPT/HCPCS: 84439; 84443; 84481; 86376 ==

== ENCOUNTER 2024-06-18 15:56 | Outpatient (CLI) | payer BC, SELFPAY | END 2024-06-18 15:57 | disposition home or self-care (01) | LOC: NFLDREF 06-27 03:44 | PROVIDERS: Visit Provider Advanced Practice Midwife | DX: O09.523 Supervision of elderly multigravida, third trimester (principal); Z3A.35 35 weeks gestation of pregnancy | CPT/HCPCS: 87081; 87653 ==

== ENCOUNTER 2024-07-09 08:50 | Outpatient (CLI) | payer BC, SELFPAY | END 2024-07-09 08:51 | disposition home or self-care (01) | LOC: NFLDREF 07-14 03:01 | PROVIDERS: Visit Provider Advanced Practice Midwife | DX: O99.891 Other specified diseases and conditions complicating pregnancy (principal); R25.2 Cramp and spasm; Z3A.38 38 weeks gestation of pregnancy | CPT/HCPCS: 82728; 83540; 83550 ==

== ENCOUNTER 2024-07-14 05:15 | Inpatient (IN) | payer BC, SELFPAY ==
[2024-07-14] VITALS (19 sets, daily range): BP systolic 105–139; BP diastolic 63–87; PULSE 64–83; RESP 16–18; TEMP 36.5–37.1; O2SAT 96–98
[2024-07-14] MEDS: LIDOCAINE 1 % PF 30 ML INJECTION (06:23)
[2024-07-14] MEDS: OXYTOCIN 10 UNIT/ML INJ IM (06:27)
--- NOTE | 2024-07-14 07:06 | P.LDBA_ITS ---
Subjective History of Present Illness Narrative: Brooklynn is a 38 year old being admitted to Labor and Delivery for spontaneous onset of labor. She reports contractions started on Sunday but started and stopped throughout the day. She started to notice contraction intensifying overnight and becoming more regular around 345 am where they decided to come in to the hospital. Her labor is supported by her , Keynon, and Carol pacheco. She is planning a waterbirth. Her full history and physical was dictated by CATIA Cannon on 07/02/2024. Please see this for details. Specific Issues/Plans [place] H&P completed by CATIA Cannon on 07/02/2024 #Hx of insufficiency pelvic fractures found after last delivery by MRI -could consider scheduled C/S per NDP, pt is not interested in this Vit D level ordered Recommend Vit D and calcium supplement #Hx cystocele PP # urinary retention with last delivery she is concerned about this reoccurring- saw uro/manufacturing engineering manager PP #Advance maternal age >35 recommended genetic screening- waiting on prior authorization from insurance per pt request recommend level 2 US, consult with [facility] # Urinary retention during last period pt saw a uro/manufacturing engineering manager no treatment recommended #Hx of TPO antibodies, no thyroid disorder sx TSH at NOB 0.986, consider recheck each trimester 3rd trimester: TSH 0.932 #Back and rib pain, exacerbated in Seeing chiropractic Having increased leg cramps as well Magnesium supplement has helped minimally, trying to increase hydration Ultrasound: [facility] Level II 03/04/2024: SIUP at 20.3 weeks by LMP and 10 week US. No anomalies detected by US, EFW 88%ile, amniotic fluid appears normal, cervix appears long and closed. COVID:?declined Flu:?declined Tdap:?declined RSV:?declined 32wk Mental Health:? 34wk hgb:?12.5?? OB - Problem Based A/P Additional Plan (1) Pain during labor: Status: Acute (2) 39 weeks gestation of : Status: Acute (3) Chronic hip pain: Status: Acute (4) Pelvic floor weakness: Status: Acute (5) Advanced maternal age in multigravida: Status: Acute Plan ASSESSMENT:? 38 yo at 39.2 weeks gestation? complicated by:?Hx of insufficiency pelvic fractures found after last delivery by MRI, Hx cystocele PP, urinary retention with last delivery, Advance maternal age >35, Urinary retention during last period, Hx of TPO antibodies, no thyroid disorder sx, Back and rib pain, exacerbated in . Labor type: Spontaneous, Active labor? Category 1 FHR pattern.?? Labor complicated by: none? GBS negative? ? PLAN:? 1. Routine intrapartum cares as ordered. Continue with expectant management, pt desires AROM before entering the tub. 2. Monitoring per policy, intermittent? 3. Planning unmedicated . Desires water . Consent signed. Hep C negative. Candidate for analgesia of choice.?? 4. Patient encouraged to reposition and ambulate to promote physiologic labor and .? 5. Anticipate ? Delivery/Labor/Induction Plan Plan: expectant management OB Exam Physical Exam Vital signs: Temp Pulse Resp BP 97.7 F 67 16 115/70 07/14/24 06:35 07/14/24 07:04 07/14/24 06:35 07/14/24 07:04 Narrative: Vitals Reviewed Constitutional:? Alert and oriented x3 HEENT:? Normocephalic, atraumatic Neck:? Supple Lungs:? Clear to auscultation bilaterally Heart:? Regular rate and rhythm, no murmur, rub or gallop Abdomen:? Soft, nontender, and gravid. Vertex by Rafael's, confirmed with cervical exam. Extremities:? No edema or erythema Cervix: 8 cm/90%/+2 station/vertex NST: 120 bpm/moderate variability/15x15 accelerations/no decelerations/contractions every 2-4 minutes Detailed Labor and Delivery Exam Patient Gravid: Yes
--- NOTE | 2024-07-14 07:29 | W.PM.OBVAGDE ---
OB Procedure Vag Delivery Mother Details Mother Details: The patient is a 38 year-old, 4, now Para 4, admitted on 07/14/24 at 39.2 weeks gestation. : 4 Para: 4 Weeks Gestation: 39.2 Admission Date: 07/14/24 Additional Details Amniotic Membrane Status: AROM Amniotic Membrane Rupture Date: 07/14/24 Amniotic Membrane Rupture Time: 05:40 Amniotic Membrane Fluid Description: Clear Analgesia/Anesthesia Type: Local Waterbirth: Yes Pitcoin: Yes ([facility] only) Intrapartal Events: Precipitous Labor <3 Hrs Labor Onset: 03:45 Complete: 05:43 Pushin:43 Heart: heart tones during second stage were not assessed as patient was removed from continuous before entering the tub and precipitously had a baby. NST was reactive prior to entering the tub. Delivery Details Delivery Date: 07/14/24 Delivery Time: 05:48 Route of delivery: Gender: Female Infant Viability: Alive; Heart Rate Present Position at Delivery: OA Delivery Details: Patient was admitted for spontaneous onset of labor. She requested AROM and precipitously progressed. AROM noted at 0540 with clear fluid and patient entered the tub shortly after. Patient was assumed complete and pushing at 0543. of a viable female at 0548, kneeling in the tub. Vertex delivered OA. No nuchal cord or shoulder. Body delivered easily and without incident. Infant passed to mothers abdomen with a vigorous cry. breastfeed while mom was in the tub. Cord was clamped and cut at > 5 minutes. APGARS were 9 at one minute and 9 at five minutes respectively. After cord was clamped, infant went to the warmer and mom was assisted out of the tub to the bed. Intact placenta with a 3 vessel cord delivered spontaneously at 0617. Circumvallate placenta noted. Fundus firm. 1st degree identified and repaired in typical fashion. QBL 25 cc. Mother and baby stable; mother plans to breastfeed. weight 8 lb. 1 Minute Interval Total Score: 9 5 Minute Interval Total Score: 9 Additional Details Shoulder Dystocia: No Placental Delivery Description: Spontaneous Delivery repair: Vicryl Procedure Done: Global Blood Loss: 25 Laceration: Perineal - 1st Degree Blood Loss Measurement Type: QBL Bakri Used: No Sponge/Need Count Correct: Yes Cord Vessel Description: 3 Vessels Event Summary Status: Mother and infant were stable after delivery. Disposition: floor
[2024-07-15 04:07] VITALS: BP 124/80; PULSE 64; RESP 18; TEMP 36.4; O2SAT 96
[2024-07-15] MEDS: DOCUSATE SODIUM 100 MG CAPSULE PO (08:30)
--- NOTE | 2024-07-15 09:21 | PM.OBDSVD1 ---
DS: Providers Provider Date Seen: 07/15/24 Date of admission: 07/14/24 05:15 Primary care physician: Not a Local Provider Admitting Clinician: Rivka Portillo CNM Attending Physician on discharge: Rivka Portillo CNM DS: Diagnosis Discharge Diagnosis (1) care and examination immediately after delivery: Status: Acute (2) Lactating mother: Status: Acute (3) Pelvic floor weakness: Status: Acute (4) Chronic hip pain: Status: Acute (5) Advanced maternal age in multigravida: Status: Acute Exam Narrative: Exam Narrative: GENERAL APPEARANCE:? normal affect, alert, no distress MOOD:? appropriate CHEST:? clear to auscultation HEART:? regular rate and rhythm ABDOMEN:? soft, non-tender the uterine fundus is At Umbilicus, Midline and is appropriate for the stage of recovery. PERINEUM:? mild edema of the perineum, there is a Perineal Laceration,?1st degree that is healing well. EXTREMITIES:? normal and no edema Const: Vital Signs, click to edit/add: Vital Signs - 24 hr 07/14/24 12:57 07/14/24 18:00 07/14/24 21:07 Temperature 98.3 F 98.6 F 98.1 F Pulse Rate [Pulse Oximeter] 64 78 79 Respiratory Rate 16 18 18 Blood Pressure [Le ft Arm] 111/74 121/84 109/69 Pulse Oximetry 98 96 96 Oxygen Delivery Me thod Room Air Room Air Room Air 07/14/24 23:57 07/15/24 04:07 Temperature 97.5 F L Pulse Rate [Pulse Oximeter] 73 64 Respiratory Rate 18 18 Blood Pressure [Le ft Arm] 105/72 124/80 Pulse Oximetry 96 96 Oxygen Delivery Me thod Room Air Room Air Documenting provider has reviewed patient's vital signs: yes OB - DS: Summary Hospital Course Hospital Course: Brooklynn is a 38 y.o. G 4 P 4 who was admitted to L & D for spontaneous onset of labor. ?She had a NVD that was uncomplicated. The patient feels well. ?The pain is well controlled with current medications. ?She has no new complaints. ?She is breast feeding and reports things are going well. the patient has done well.? Vitals have been stable.? She has remained afebrile.? Has a good appetite, is tolerating a general diet. ?She is voiding without difficulty.? She is passing gas and has not had a bowel movement.? She is ambulating and denies any dizziness.? Has small amount of rubra lochia. She is planning vasectomy for her as prevention. Problems: Hx of urinary retention , encouraged her to void every 2-3 hours to help with bladder training. Peripartum Data Infant delivery method: Vaginal Laceration description: Perineal - 1st Degree complications: none Gender: Female Infant Discharge Plan: Home Status at Discharge Functional status at discharge: independent ambulation Overall status at discharge: patient is progressing back to baseline Time Spent with Patient Time attestation: Total time spent providing and/or coordinating discharge services: Time spent: Less than 30 minutes Discharge Plan Discharge Disposition: Home, Self-Care Date of Admission: 07/14/24 05:15 Attending Provider on Discharge: Rivka Portillo Primary Care Provider: Provider,Not a Local Condition: Stable Anticipated Discharge Date/Time: 07/15/24 12:00 Discharge Medications: New acetaminophen 500 mg Tablet 1,000 mg PO Q6H PRNQty: 0 0RF docusate sodium 100 mg Capsule 100 mg PO DAILY Qty: 30 0RF ibuprofen 600 mg Tablet 600 mg PO Q6H PRNQty: 0 0RF Continued prenat.vits,angelica,wbj-utmk-gaaii Tablet 1 tab PO QDAY Saccharomyces boulardii [Daily Probiotic (S. boulardii)] 250 mg capsule 250 mg PO BID omega 6-hac-kjh-fish oil [Fish Oil] 60-90-500 mg capsule 1 cap PO QDAY magnesium oxide 240 mg magnesium powder in packet PO Discharge Orders: Discharge Order (Routine); Ordered 07/15/24 Ordered By: Rivka Portillo Patient Education: OB Over the Counter Medication Information, OB Vaginal/Breast Feeding Additional Instructions: Discharge instructions were reviewed with the patient including signs and symptoms of infection and home going medications Nothing vaginally for 6 weeks: no tampons or intercourse Do not drive while taking narcotic pain medication(s) Off Work or School for 8 weeks 2-week visit: discuss feeding concerns, review control options and screen for anxiety/depression. 6-week visit for an annual exam. consultation services are available to all mothers and babies for the first year after delivery.? To make an appointment, please call [phone]. Activity Level: Activity as Tolerated Discharge Diet: Regular Follow Up Appointments: [facility] [Provider Group] Forms: MyHealth Info Instructions
[2024-07-15 09:45] VITALS: BP 113/77; PULSE 72; RESP 16; TEMP 36.5; O2SAT 95
== END 2024-07-15 13:15 | disposition home or self-care (01) | DRG 560 ==
LOC: OB OUT 05:51 → OB 05:51
PROVIDERS: Admitting Provider Advanced Practice Midwife; Visit Provider Advanced Practice Midwife
DX: O70.0 First degree perineal laceration during delivery (principal); Z3A.39 39 weeks gestation of pregnancy; Z37.0 Single live birth; O75.89 Other specified complications of labor and delivery; N81.89 Other female genital prolapse; G89.29 Other chronic pain; M25.559 Pain in unspecified hip; Z87.42 Personal history of other diseases of the female genital tract; Z87.59 Personal history of other complications of pregnancy, childbirth and the puerperium
CPT/HCPCS: 86592; A9270; J2003; J2590

== ENCOUNTER 2024-08-01 12:51 | Outpatient (CLI) | payer BC, SELFPAY ==
--- NOTE | 2024-08-01 13:47 | W.PM.LAC.MC ---
Consult Note - Mom Date of Visit Date of visit: 08/01/24 Reason for consultation: Breast/Nipple Issue (painful latch) Visit Code: Visit Patient's Information Phone number: [phone] : 4 Para: 4 Allergies No Known Allergies Allergy (Verified 07/23/24 10:42) Mother's Medical History: Medical History (Updated 07/17/24 @ 00:00 by Background Daemon) Diastasis recti ?M62.08 - Separation of muscle (nontraumatic), other site (ICD-10) Insufficiency fracture of pelvis ?M84.454A - Pathological fracture, pelvis, initial encounter for fracture (ICD-10) Retention of urine ?R33.9 - Retention of urine, unspecified (ICD-10) care ?Z34.90 - Encounter for supervision of normal , unspecified, unspecified trimester (ICD-10) History of vaginal delivery History of abnormal cervical Papanicolaou smear ?Z87.42 - Personal history of other diseases of the female genital tract (ICD-10) Work Plans: return to work at 3 months Delivery Information Delivery type: Vaginal Gestational Age: 39+2 Gestational Weight For Age: AGA Weight: 3.62 kg Discharge Weight: 3.504 kg Percentage weight loss: 3.3 Baby's Information Baby's Age at Visit: 18 days Baby's Provider or Clinic: [facility] Jaundice: No Past Experience Past Experience: Yes Current Frequency of Day Feedings: every 2-3 hours Frequency of Night Feedings: 3-4 hours Both Breasts: Yes Suck: strong Latch: shallow, pinchy Length of Time: 10-15 min ea Goals: at least 1 year Pumping Pumping: Yes Quantity Pumped: 6-8 oz/day Supplementing EBM Supplement: No Formula Supplement: No Baby Elimination Number of Wet Diapers a Day: ea feeding Number of BM a Day: multiple/day Breast/Nipple Condition Breast Information: Breasts are symmetrical with rounded lower quadrants, intramammary distance is less than 1.5 inches. No erythema. Nipples are supple, everted prior to feeding. Breast Shape: Round Engorgement: No Maternal Nipple Condition - Left: Common Nipple and Other (slight crease noted even prior to nursing) Maternal Nipple Condition - Right: Common Nipple Sore Nipples: Yes Interventions for Sore Nipples: Lansinoh/Nipple Cream Baby Assessment Skin: Normal Tongue/frenulum: Restricted-frenulum attaches at tip of tongue, heart shaped Palate: Average Lips: Relaxed and Symmetrical Jaw Alignment: Symmetrical Mucosa: Radisson, moist Onsite Observation Pre-Feed weight: 3.88 kg Post-Feed weight: 3.894 kg Milk Transferred (mL): 14 (mom had fed about 1 hr ago, baby not too interested in feeding) Position: Cradle Attachment/latch-on achieved: Easily Suck pattern: Suck burst and normal rest Swallow: Audible, consistent Behavior following feed: Alert, content Pre-Nursing Left Nipple: Creased/Beveled Pre-Nursing Right Nipple: Within Normal Limits Post-Nursing Left Nipple: Creased/Beveled and Blanched (at tip) Post-Nursing Right Nipple: Creased/Beveled Assessments/Interventions Assessments/Interventions: observation: Mom latched baby to left breast; difficulty getting baby's mouth open wide to allow for deep latch with tongue down Eventually able to get on, but even with deep latch, mom still reports pain, nipple is creased after feeding and nipple tip is blanched white. Some clicking noises audible during feeding as well Mom then latched baby to her right breast; this goes a bit more easily but baby not eager to nurse longer Discussed role of tethered tongue for preventing deep latch, clicking sounds, swallowing air and creased/pinched nipple. Mom has 3 other children, 2 of whom have needed tongue tie releases. Education provided: Early feeding cues to maximize timing of latching, Asymmetric latch technique for wide/deep latch to increase milk, Transfer for baby and increase comfort for mom, Alternative feeding methods (SNS, cup, finger feeding, bottling) (discussed adding bottles at 3-4 weeks as mom had one baby refuse the bottle) and Other (Referral for tongue tie (Dr. Rhodes) and craniosacral therapy discussed) Follow-Up Suggested follow up: Appointment as needed Time Spent Time spent with patient (min): 60 (reviewing EMR and face to face with patient and ) Meds Home Medications and Allergies Home Medications ?Medication ?Instructions ?Recorded ?Confirmed ?Type prenat.vits,angelica,[id number]-[id number] 1 tab PO QDAY 01/03/22 07/23/24 History Saccharomyces boulardii 250 mg 250 mg PO BID 12/25/23 07/23/24 History capsule (Daily Probiotic (S. boulardii)) omega 5-skr-jfu-fish oil 60 mg-90 1 cap PO QDAY 12/25/23 07/23/24 History mg-500 mg capsule (Fish Oil) magnesium oxide mg PO 07/09/24 07/23/24 History Allergies Allergy/AdvReac Type Severity Reaction Status Date / Time No Known Allergies Allergy Verified 07/23/24 10:42
== END 2024-08-01 12:52 | disposition home or self-care (01) ==
PROVIDERS: Visit Provider Obstetrics & Gynecology
DX: Z39.1 Encounter for care and examination of lactating mother (principal)
CPT/HCPCS: G0463